=== PATIENT | female | born 1945 | race Caucasian/White ===

== ENCOUNTER 2018-03-17 05:56 | Inpatient (IN) | payer MEDICARE, MEDICAID ==
[~2018-03-17] VITALS: Ht 175.3 cm; Wt 83.7 kg
--- NOTE | ~2018-03-17 | PN ---
PATIENT:WENDY RAMIREZ MEDICAL RECORD: [id number] LOCATION:[facility] ADMISSION DATE: 03/17/18 PROGRESS NOTE DATE OF SERVICE: 03/20/2018 SUBJECTIVE: The patient's case was discussed with staff. She has no new complaint. OBJECTIVE: The patient does not think she slept very well even though the nurses chart almost 10 hours. She says that she is having a lot of discomfort, but is vague about exactly where or related to what. She is requesting hydrocodone. ASSESSMENT: No change in diagnoses. PLAN: I am not satisfied with the patient's response to Celexa. I am going to taper it down and will start another antidepressant. In addition to this, I am going to taper her Klonopin down as well, especially since she overdosed on it. It is my opinion that she is going to need a different living situation and although the neuropsychological testing is pending, I am convinced it is going to show sufficient impairment such that living alone is not going to be appropriate. TRANSINT:[id number] Voice Confirmation ID: [id number] DOCUMENT ID: [id number] HOLDEN BURRELL MD at 1037 CC: [id number] DICTATION DATE: 03/20/18 1519 CASING CREW: 03/20/18 1602 ADM IN [place] [address] [place] [address]
--- NOTE | ~2018-03-17 | PN ---
PATIENT:WENDY RAMIREZ MEDICAL RECORD: [id number] LOCATION:LY Lynch112 ADMISSION DATE: 03/17/18 PROGRESS NOTE DATE OF SERVICE: 04/03/2018 SUBJECTIVE: The patient's case was discussed with staff. She has no new complaint. OBJECTIVE: The patient denies intent to harm herself or others. She generally tolerates her medicines well. Eye contact is fair. Concentration is fair. ASSESSMENT: No change in diagnoses. PLAN: Brief supportive and educational interventions were made. Senior Living prognosis is guarded. I anticipate she can be transitioned out of the hospital soon. TRANSINT:[id number] Voice Confirmation ID: [id number] DOCUMENT ID: [id number] HOLDEN BURRELL MD at 1319 CC: [id number] DICTATION DATE: 04/03/18 1516 PUMP HOUSE OPERATOR: 04/03/18 1555 ADM IN [place] [id number] [place] [id number]
--- NOTE | ~2018-03-17 | PN ---
PATIENT:WENDY RAMIREZ MEDICAL RECORD: [id number] LOCATION:[place] [facility]kay ADMISSION DATE: 03/17/18 PROGRESS NOTE DATE OF SERVICE: 04/02/2018 SUBJECTIVE: The patient's case was discussed with staff. She has no new complaint. OBJECTIVE: The patient denies intent to harm herself or others. She generally tolerates her medicines well. She has fairly severe short-term memory impairment. I anticipate that she can be transitioned to the half-way as soon as approval is received from the state. TRANSINT:[id number] Voice Confirmation ID: [id number] DOCUMENT ID: [id number] HOLDEN BURRELL MD at 1501 CC: [id number] DICTATION DATE: 04/02/18 1628 CHILDREN'S PROGRAM COORDINATOR: 04/02/18 1850 ADM IN [facility] [address] [place] [address]
--- NOTE | ~2018-03-17 | PN ---
PATIENT:WENDY RAMIREZ MEDICAL RECORD: [id number] LOCATION:[place] Lynch112 ADMISSION DATE: 03/17/18 PROGRESS NOTE DATE OF SERVICE: 04/05/2018 SUBJECTIVE: The patient's case was discussed with staff. She has no new complaint. OBJECTIVE: The patient will be transitioned out of the hospital today. An explanation of this was given in yesterday's note. I continue to hold those views. She is not acutely dangerous, but she is demented and needs supervision that is not going to be adequately provided. I have decided to report the case to adult protective services and feel that that is all that can be done. ASSESSMENT: No change in diagnoses. PLAN: Brief supportive and educational interventions were made. The patient will be transitioned out of the hospital today. TRANSINT:[id number] Voice Confirmation ID: [id number] DOCUMENT ID: [id number] HOLDEN BURRELL MD at 1450 CC: [id number] DICTATION DATE: 04/05/18 1028 PARTS COORDINATOR: 04/05/18 1101 DIS IN 04/05/18 [facility] [address] [place] [address]
--- NOTE | ~2018-03-17 | PN ---
PATIENT:WENDY RAMIREZ MEDICAL RECORD: [id number] LOCATION:[place]kay ADMISSION DATE: 03/17/18 PROGRESS NOTE DATE OF SERVICE: 03/26/2018 SUBJECTIVE: The patient's case was discussed with staff. She has no new complaint. OBJECTIVE: The patient is in good behavioral control with limited insight about her condition. She does tolerate her medicines well. ASSESSMENT: Senile dementia of the Alzheimer's type with behavioral disturbances. PLAN: The patient needs the dementia diagnosis added to her regimen. Dr. Kylah Serna has tested her. She scored in the moderate to severe range. This is consistent with bedside exam. She is not capable of living independently. I am not sure what her daughter and sister want as far as her living circumstances go, but it is inappropriate for her to live independently. In fact, she is in need of 84-aexi-o-day supervision. TRANSINT:[id number] Voice Confirmation ID: [id number] DOCUMENT ID: [id number] HOLDEN BURRELL MD at 1452 CC: [id number] DICTATION DATE: 03/26/18 1507 DAIRY DEPARTMENT MANAGER: 03/26/18 1537 ADM IN [place] [address] [place] [id number]
--- NOTE | ~2018-03-17 | PN ---
PATIENT:WENDY RAMIREZ MEDICAL RECORD: [id number] LOCATION:[place]kay ADMISSION DATE: 03/17/18 PROGRESS NOTE DATE OF SERVICE: 03/19/2018 SUBJECTIVE: The patient's case was discussed with staff. She has no new complaint. OBJECTIVE: The patient denies intent to harm herself or others. She is tolerating her medicines well. I think she is a little bit over sedated, but not severely so. She denies that she would seek to harm herself or others. ASSESSMENT: No change in diagnoses. PLAN: The patient will have her Klonopin reduced to 0.5 mg 3 times daily. Her long-term prognosis is guarded. TRANSINT:[id number] Voice Confirmation ID: [id number] DOCUMENT ID: [id number] HOLDEN BURRELL MD at 1456 CC: [id number] DICTATION DATE: 03/19/18 1444 CATTLE BRANDER: 03/19/18 1509 ADM IN [place] [address] [place] [address]
--- NOTE | ~2018-03-17 | PN ---
PATIENT:WENDY RAMIREZ MEDICAL RECORD: [id number] LOCATION:[place]kay ADMISSION DATE: 03/17/18 PROGRESS NOTE DATE OF SERVICE: 03/28/2018 SUBJECTIVE: The patient's case was discussed with staff. She has no new complaint. OBJECTIVE: The patient is in good behavioral control with limited insight about her condition. She is eating and sleeping reasonably well. She has evidence of significant and serious cognitive impairment. ASSESSMENT: No change in diagnoses. PLAN: The patient will have her Klonopin tapered slightly. TRANSINT:[id number] Voice Confirmation ID: [id number] DOCUMENT ID: [id number] HOLDEN BURRELL MD at 1438 CC: [id number] DICTATION DATE: 03/28/18 1404 SPOT WELDER: 03/28/18 1424 ADM IN [place] [address] [place] [address]
--- NOTE | ~2018-03-17 | PN ---
PATIENT:WENDY RAMIREZ MEDICAL RECORD: [id number] LOCATION:[place] [place] ADMISSION DATE: 03/17/18 PROGRESS NOTE DATE OF SERVICE: 03/24/2018 SUBJECTIVE: The patient's case was discussed with staff. She has no new complaint. OBJECTIVE: The patient denies intent to harm herself or others. She tolerates her medicines well. She has evidence of clear cognitive impairment. The testing from Dr. Kylah Serna is pending. ASSESSMENT: No change in diagnoses. PLAN: Current medicines have been reviewed. I am going to increase the dose of the Effexor slightly. I will continue the tapering of the Ultram and Klonopin soon. TRANSINT:[id number] Voice Confirmation ID: [id number] DOCUMENT ID: [id number] HOLDEN BURRELL MD at 1445 CC: [id number] DICTATION DATE: 03/24/18 1004 PREFABRICATOR: 03/24/18 1159 ADM IN [place] [address] [place] [address]
--- NOTE | ~2018-03-17 | PN ---
PATIENT:WENDY RAMIREZ MEDICAL RECORD: [id number] LOCATION:LY [place] ADMISSION DATE: 03/17/18 PROGRESS NOTE DATE OF SERVICE: 03/30/2018 SUBJECTIVE: No new complaint noted. OBJECTIVE: The patient has been doing reasonably well. No further suicidal ideation has been noted. We are waiting on assessment from [facility] and associates. On exam, mood is for the most part euthymic. Affect is very constricted. Speech is terse. Content of thought is negative for suicidal ideation. Sensorium unchanged. ASSESSMENT: No change in diagnosis. PLAN: 1. Continue all current medication. 2. Continue supportive therapy. TRANSINT:[id number] Voice Confirmation ID: [id number] DOCUMENT ID: [id number] WENDY HILL III, MD at 1959 CC: [id number] DICTATION DATE: 03/30/18 1116 SUPERVISOR COMPONENT ASSEMBLER: 03/30/18 1120 ADM IN [place] [id number] [place] [address]
--- NOTE | ~2018-03-17 | PSY ---
PATIENT NAME:WENDY RAMIREZ MEDICAL RECORD: [id number] : 41 LOCATION:[facility] ADMISSION DATE: 03/17/18 ACCOUNT: [id number] PSYCHIATRIC EVALUATION DATE OF EVALUATION: 03/17/18 IDENTIFYING DATA: The patient is 72 years old and she is admitted to the hospital on a voluntary basis. CHIEF COMPLAINT: Suicidal thoughts. HISTORY OF PRESENT ILLNESS: Last night, the patient was depressed and took several Klonopin. She says she was thinking about taking the rest, but was taken to the Emergency Room where she indicated she was depressed, had taken some Klonopin 3 tablets, I believe and then was wanting to take the rest of them for the purpose of ending her life. She endorses numerous neurovegetative depressive symptoms and feels helpless, hopeless, isolated, and withdrawn. She denies substance abuse. She denies overt psychotic symptoms. PAST MEDICAL HISTORY: Significant for COPD, hypothyroidism, and a brain tumor that was removed in the remote past. PAST PSYCHIATRIC HISTORY: Significant for previous diagnosis of bipolar disorder after she was hospitalized some years ago for a suicide attempt. At that time, she did indeed take an overdose and had outpatient psychiatric followup for a while, but then was changed to her primary care physician and then has stopped seeing him. 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 It is interestingly now listed as an allergy, but she says that is just because she does not want to get hooked on it again. FAMILY HISTORY: Significant for first-degree relatives with bipolar disorder. ALLERGIES: ASPIRIN AND CIPRO. CURRENT MEDICATIONS: Include Synthroid, Protonix, Aldactone, Zocor, Klonopin, Zofran, Desyrel, Mirapex, Celexa, Xarelto, Ventolin, and Macrodantin. SOCIAL HISTORY: The patient is . She does have 2 adult children involved with her care. 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 She has no history of legal entanglements or alcohol abuse. She is a very heavy smoker, but says that she recently has cut down from 3 packs a day to 1. About 6 months ago, she was having trouble paying her bills, keeping her checkbook balance and her daughter has now taken over that function. MENTAL STATUS EXAMINATION: The patient is awake, alert, and oriented to person and place and somewhat to time and situation. Her mood is flat. Her affect is constricted. Thought processes are circumstantial. Memory, concentration, and abstraction abilities are moderately impaired and she denies any active intent to harm herself or others as well as overt psychotic symptoms. ASSETS: Supportive family members. LIABILITIES: Limited insight. DIAGNOSTIC IMPRESSION: AXIS I: 1. Bipolar disorder, depressed phase. 2. Senile dementia of the Alzheimer's type. AXIS II: Deferred. AXIS III: Chronic obstructive pulmonary disease, hypothyroidism, status post brain tumor. AXIS IV: Moderate stressors. AXIS V: Global assessment of functioning is 35. PLAN: At this time, the patient is admitted to the hospital for a comprehensive medical, psychological, and social evaluation. She will be treated with both mood stabilizing and memory enhancing medications. Her long-term prognosis is guarded. TRANSINT:[id number] Voice Confirmation ID: [id number] DOCUMENT ID: [id number] HOLDEN BURRELL MD at 1417 CC: [id number] DICTATION DATE: 03/17/18 1042 CONTINUOUS IMPROVEMENT FACILITATOR: 03/17/18 1141 [facility] IN [place] [address] [place] [id number]
--- NOTE | ~2018-03-17 | PN ---
PATIENT:WENDY ARMIREZ MEDICAL RECORD: [id number] LOCATION:[place] LynchKaykay ADMISSION DATE: 03/17/18 PROGRESS NOTE DATE OF SERVICE: 03/27/2018 SUBJECTIVE: The patient's case was discussed with staff. She has no new complaint. OBJECTIVE: The patient is severely impaired cognitively. She has not been aggressive. She has not complained about anxiety or pain associated with my tapering off her Ultram and Klonopin. Today, I am going to reduce the Ultram to 50 mg twice daily. ASSESSMENT: No change in diagnoses. PLAN: The patient requires a level 2 screening by the office of long-term care before she can go to a [facility]. This will delay discharging her until this is completed. It is my opinion that the patient is too impaired to live alone. TRANSINT:[id number] Voice Confirmation ID: [id number] DOCUMENT ID: [id number] HOLDEN BURRELL MD at 1339 CC: [id number] DICTATION DATE: 03/27/18 1511 ASSORTER LAUNDRY: 03/27/18 1519 ADM IN [facility] [address] [place] [id number]
--- NOTE | ~2018-03-17 | DS ---
PATIENT:WENDY RAMIREZ :41 MEDICAL RECORD: [id number] DISCHARGE SUMMARY ADMISSION DATE: 03/17/18 DISCHARGE DATE: 04/05/18 IDENTIFYING DATA: The patient is 72 years old and she was admitted to the hospital on a voluntary basis because of suicidal thoughts. The patient has been depressed and took several Klonopin tablets. She says she was very unhappy and was then taken to the Emergency Room by some family members. She had only taken 3 of the Klonopin. She endorsed numerous neurovegetative depressive symptoms and was admitted to the behavioral unit for evaluation and treatment. HOSPITAL COURSE: The patient was fully evaluated from both a medical, psychological, and social standpoint. She was found to have a history of mental illness with a history of bipolar disorder and she was given a mood stabilizer. Unfortunately, she was also found to have, through both bedside exam and neuropsychological testing, a dementia. She was treated with a cholinesterase inhibitor. The patient was cognitively impaired and mentally ill and had limited abilities to care for herself and a limited support system. She was subsequently referred for long-term placement, but denied by the state for reasons that are inadequate in my view. The director social welfare who evaluated her for the state felt that I and the psychologist who had tested her had overestimated her inability to function despite the fact that the social workers interviewed her briefly and she was hospitalized with us for weeks. That also is despite the fact that the director social welfare from the state has a subordinate credentials to both myself and Dr. Serna, but at any rate, there is nothing that can be done about it and the state will not allow her to go to a long-term, although I doubt they will take responsibility for any bad outcome. DISCHARGE DIAGNOSES: AXIS I: 1. Bipolar disorder. 2. Senile dementia of the Alzheimer's type. AXIS II: Deferred. AXIS III: Chronic obstructive pulmonary disease, hypothyroidism, status post brain tumor. AXIS IV: Moderate stressors. AXIS V: Global assessment of functioning is 40. PLAN: At the time of discharge, the patient was not acutely dangerous to herself in a direct way. She was tolerating her medicines well and appropriate followup recommendations were made. Unfortunately, the patient's limited insight and abilities to function are likely to reduce her long-term prognosis significantly. I have instructed her that if she has any thoughts of harming herself, she should call immediately or just dial 911 and that I would readmit her and try again to have the office of long-term care allow me to put her in a long-term. TRANSINT:[id number] Voice Confirmation ID: [id number] DOCUMENT ID: [id number] DISCHARGE SUMMARY REPORT [id number] WENDY RAMIREZ PETER MD at 1344 CC: [id number] DICTATION DATE: 04/12/18 1400 MARKETING OPERATIONS CONSULTANT: 04/12/18 1515 DIS IN 04/05/18 [place] [address] [place] [address]
--- NOTE | ~2018-03-17 | PN ---
PATIENT:WENDY RAMIREZ MEDICAL RECORD: [id number] LOCATION:LY LynchKaykay ADMISSION DATE: 03/17/18 PROGRESS NOTE DATE OF SERVICE: 03/21/2018 SUBJECTIVE: The patient's case was discussed with staff. She has no new complaint. OBJECTIVE: The patient is in good behavioral control with limited insight about her condition. She did sleep better last night. PLAN: Her long-term prognosis is guarded. I do plan to discontinue her Celexa and I am going to start her on a low dose of Effexor. TRANSINT:[id number] Voice Confirmation ID: [id number] DOCUMENT ID: [id number] HOLDEN BURRELL MD at 1224 CC: [id number] DICTATION DATE: 03/21/18 1049 SPORTS ACTIVITIES FOUL JUDGE: 03/21/18 1156 ADM IN [place] [address] [place] [address]
--- NOTE | ~2018-03-17 | PN ---
PATIENT:WENDY RAMIREZ MEDICAL RECORD: [id number] LOCATION:LY BucioBiancaKaykay ADMISSION DATE: 03/17/18 PROGRESS NOTE DATE OF SERVICE: 03/29/2018 SUBJECTIVE: The patient's case was discussed with staff. She has no new complaint. OBJECTIVE: The patient is in good behavioral control. She has significant cognitive impairment, but no active thoughts of self-harm. ASSESSMENT: No change in diagnoses. PLAN: Current medicines and therapies have been reviewed and will be maintained. Long-term prognosis is guarded. I am going to taper the patient's Ultram slightly and I do plan to discontinue both it and the Klonopin. TRANSINT:[id number] Voice Confirmation ID: [id number] DOCUMENT ID: [id number] HOLDEN BURRELL MD at 1617 CC: [id number] DICTATION DATE: 03/29/18 1455 INSURANCE CLAIMS SPECIALIST: 03/29/18 1612 ADM IN [place] [address] [place] [address]
--- NOTE | ~2018-03-17 | PN ---
PATIENT:WENDY RAMIREZ MEDICAL RECORD: [id number] LOCATION:LY LynchKaykay ADMISSION DATE: 03/17/18 PROGRESS NOTE DATE OF SERVICE: 03/23/2018 SUBJECTIVE: The patient's case was discussed with staff. She has no new complaint. OBJECTIVE: The patient is in good behavioral control with limited insight about her condition. She tolerates her medicines well. ASSESSMENT: No change in diagnoses. PLAN: Supportive and educational interventions were made. The patient will have her Ultram and Klonopin titrated downward slightly. Her long-term prognosis is guarded. TRANSINT:[id number] Voice Confirmation ID: [id number] DOCUMENT ID: [id number] HOLDEN BURRELL MD at 0949 CC: [id number] DICTATION DATE: 03/23/18 1234 SWEEP MOLDER: 03/23/18 1239 ADM IN [place] [id number] [place] [address]
--- NOTE | ~2018-03-17 | PN ---
PATIENT:WENDY RAMIREZ MEDICAL RECORD: [id number] LOCATION:LY Lynch112 ADMISSION DATE: 03/17/18 PROGRESS NOTE DATE OF SERVICE: 04/04/2018 SUBJECTIVE: The patient's case was discussed with staff. She has no new complaint. OBJECTIVE: The patient has no thoughts of self-harm and is tolerating her medications well. Unfortunately, [facility] has decided that she does not meet criteria for long-term. They base this on a kzvn-ki-knpo evaluation done by a director of social media marketing. This is contrary to my recommendation as a physician and psychiatrist as well as the recommendation of the consulting Ph. D. psychologist who performed neuropsychiatric testing, indicating that Mrs. Ramirez has a moderately advanced dementia. It is my recommendation that she needs a long-term. The [facility] had been contacted to request a repeal and appeal, which they said they would kristina but, in a condescending manner, indicated that appeals are done by the same people who made this ruling and that it would be just a waste of time. Obviously, this leaves me with no alternative but to discharge her back home, which I think is not the appropriate setting for her. I am holding the director of social media marketing from [facility] responsible and the agency that she works for responsible if there is a bad outcome based on not following the recommendations of the attending psychiatrist, myself; and the consulting psychologist, Dr. Serna. I find this to be completely unacceptable, almost certainly motivated by contractual arrangement from a private organization with the state in which they are paid to save money on Medicaid payments to long-term admissions and I understand the budgetary restraints, but this is wildly inappropriate; and if I had the ability to overrule it or change it, I certainly would. I am also going to monitor the situation, and if I find out that she is injured, we will make sure that there is action taken against [facility]. ASSESSMENT: No change in diagnoses. PLAN: The patient will be transitioned out of the hospital tomorrow under circumstances that are disgraceful and described above. TRANSINT:[id number] Voice Confirmation ID: [id number] DOCUMENT ID: [id number] HOLDEN BURRELL MD at 1012 CC: [id number] DICTATION DATE: 04/04/18 1341 INSTRUCTIONAL SPECIALIST: 04/04/18 1358 ADM IN [facility] [address] [facility]
--- NOTE | ~2018-03-17 | PN ---
PATIENT:WENDY RAMIREZ MEDICAL RECORD: [id number] LOCATION:LY Lynch112 ADMISSION DATE: 03/17/18 PROGRESS NOTE DATE OF SERVICE: 03/22/2018 SUBJECTIVE: The patient's case was discussed with staff. She has no new complaint. OBJECTIVE: The patient denies intent to harm herself or others. She generally tolerates her medicines well. Eye contact is poor. Concentration is poor. ASSESSMENT: No change in diagnoses. PLAN: The patient will have her Ultram changed to a lower dose, but scheduled instead of p.r.n. In addition to this, I am going to maintain her on her current medications. Some interesting additional information has been provided by her daughter. Apparently, the patient has a lifelong history of taking narcotics or pain medicines and benzos for real or perceived or exaggerated emotional and physical discomfort. The family says that if she would become angry with the doctor who would not prescribe what she wanted or would limit what she wanted she would just simply go see another physician. I have not discussed this with the patient, but it does seem consistent with the presentation that I am receiving. Based on this, I am going to change her from p.r.n. Ultram, which she is asking for regularly to a lower dose of scheduled Ultram, which I will taper her down from if possible. I am anxious to have Dr. Kylah Serna test her. I am certain that she is not intact cognitively and my estimate is that she is in the moderate range of impairment and should not be living alone. TRANSINT:[id number] Voice Confirmation ID: [id number] DOCUMENT ID: [id number] HOLDEN BURRELL MD at 1212 CC: [id number] DICTATION DATE: 03/22/18 1300 VACUUM PLASTIC FORMING MACHINE OPERATOR: 03/22/18 1306 ADM IN [facility] [address] [place] [address]
[~2018-03-17 05:56] MED LIST: ALDACTONE50 MG PO; ATARAX 25 MG TA25 MG PO; ATIVAN0.5 MG PO; CARAFATE1 G PO; COMBIVENT RESPIM4 GM INH; CYMBALTA30 MG PO; FISH OIL 500 MG1 CAP PO; FUROSEMIDE20 MG PO; IPRAT-ALBUT 0.5-3 ML UPD; LEVAQUIN500 MG PO; LEVOTHYROXINE50 MCG PO; LEXAPRO10 MG PO; MACRODANTIN100 MG PO; MECLIZINE HCL25 MG PO; MULTIPLE VITAMI1 TA1 PO; NEXIUM40 MG PO; NICODERM C1 PATCH .2 TRANSDERM; NYSTATIN1 PWD TOPICAL; PERCOCET 5-3251 TAB PO; PHENERGAN25 M1 PO; PROTONIX40 MG PO; REGLAN10 MG PO; SILVADENE20 GM TOPICAL; TIROSINT13 MCG; TYLENOL W/CODEI1 TAB PO; VENTOLIN/PR2 MG/5 ML; VESICARE10 MG PO; XARELTO10 MG; XARELTO20 MG PO; ZOCOR40 MG PO; ZOCOR5 MG
[2018-03-17] MEDS ORDERED: MACROBID100 MG PO (06:20)
[2018-03-17] MEDS ORDERED: ACIDOPHILUS-PE1 EACH PO (06:22)
[2018-03-17] MEDS ORDERED: ZOFRAN4 MG PO (06:22)
[2018-03-17] MEDS ORDERED: FIORICET-COD 51 EACH PO (06:24)
[2018-03-17] MEDS ORDERED: MIRAPEX1 MG PO (06:25)
[2018-03-17] MEDS ORDERED: DESERYL100 MG PO (06:27)
[2018-03-17] MEDS ORDERED: MYSOLINE 50 MG50 MG PO (06:28)
[2018-03-17] MEDS ORDERED: TEMAZEPAM30 MG PO (06:29)
[2018-03-17] MEDS ORDERED: KLONOPIN1 MG PO (06:30)
[2018-03-17] MEDS ORDERED: PROVENTIL/2.5 MG/3 M INH (06:31)
[2018-03-17] MEDS ORDERED: CELEXA20 MG PO (06:32)
[2018-03-17 08:20] LABS: BASOPHILS 0.2 % (0-2); EOSINOPHILS 3.1 % (0-7); HEMATOCRIT 39.5 % (36.0-48.0); HEMOGLOBIN 13.7 g/dL (12-16); IMMATURE GRANULOCYTES 0.2 % (0-5); LYMPHOCYTES 31.4 % (15-50); MCH 31.4 pg (26.0-34.0); MCHC 34.7 g/dL (31.0-37.0); MCV 90.6 fL (80.0-100.0); MEAN PLATELET VOLUME 11.2 fL (7.4-10.4); MONOCYTES 7.3 % (2-11); NEUTROPHILS 57.8 % (40-80); RBC 4.36 10x6/uL (4.00-5.40); RDW 12.7 % (11.5-14.5); WBC 6.4 10x3/uL (4.8-10.8)
[2018-03-17 08:31] LABS: PLATELET COUNT 144 10x3/uL (130-400)
[2018-03-17 08:39] LABS: ALBUMIN 3.6 g/dL (3.4-5.0); ANION GAP 12.4 mmol/L (8-16); BILIRUBIN - TOTAL 0.13 mg/dL (0.2-1.3); CALCIUM 8.9 mg/dL (8.5-10.1); CARBON DIOXIDE 29.9 mmol/L (21.0-32.0); CHOL - HDL RATIO 4.1 ratio (2.3-4.1); CREATININE - SERUM 0.8 mg/dL (0.6-1.3); LDL-HDL RATIO 1.8 ratio (1.5-3.5); POTASSIUM - SERUM 4.3 mmol/L (3.5-5.1); PROTEIN - SERUM 7.2 g/dL (6.4-8.2); THYROID STIMULATING HORMONE 2.25 uIU/mL (0.36-3.74)
[2018-03-17 10:06] VITALS: BP 116/72; BMI 27.3
[2018-03-17 10:42] VITALS: BP 116/72
[2018-03-17 20:16] VITALS: BP 140/64
[2018-03-17 21:32] LABS: APPEARANCE CLOUDY (CLEAR); COLOR YELLOW (YELLOW); SPECIFIC GRAVITY 1.005 (1.005-1.020)
[2018-03-17 21:33] LABS: BILIRUBIN NEGATIVE (NEGATIVE); GLUCOSE NEGATIVE (NEGATIVE); KETONE NEGATIVE (NEGATIVE); NITRITE NEGATIVE (NEGATIVE); PROTEIN NEGATIVE (NEGATIVE); UROBILINOGEN NORMAL (NORMAL)
[2018-03-17 21:35] LABS: BACTERIA MODERATE /hpf (NONE SEEN); EPITHELIAL CELLS 0-5 /hpf (0-5); RED CELLS - URINE 0-5 /hpf (0-5)
[2018-03-18 08:27] VITALS: BP 105/69
[2018-03-18 19:26] VITALS: BP 124/71
[2018-03-19 07:00] VITALS: BP 101/65
[2018-03-19 07:09] LABS: VITAMIN D 25 HYDROXY 29.7 ng/mL (30.0-100.0)
[2018-03-19 09:58] VITALS: BMI 27.3
[2018-03-19 12:11] LABS: FOLATE (FOLIC ACID) - SERUM >20.0 ng/mL (>3.0)
[2018-03-19 19:56] VITALS: BP 120/82
[2018-03-20 03:10] LABS: RAPID PLASMA REAGIN Non Reactive (Non Reactive)
[2018-03-20 07:56] VITALS: BP 117/80
[2018-03-20 19:55] VITALS: BP 124/72
[2018-03-21 19:33] VITALS: BP 118/66
[2018-03-22 08:11] VITALS: Ht 175.3 cm; Wt 83.7 kg
[2018-03-22 08:30] VITALS: BP 96/90
[2018-03-22 21:13] VITALS: BP 110/61
[2018-03-23 08:30] VITALS: BP 101/68
[2018-03-23 20:02] VITALS: BP 114/67
[2018-03-24 08:16] VITALS: BP 100/67
[2018-03-24 10:19] VITALS: BP 105/67
[2018-03-24 19:58] VITALS: BP 117/72
[2018-03-25 07:00] VITALS: BP 114/78
[2018-03-25 20:26] VITALS: BP 102/54
[2018-03-26 07:00] VITALS: BP 112/75
[2018-03-26 19:58] VITALS: BP 107/73
[2018-03-27 10:03] VITALS: BP 113/76
[2018-03-28 00:11] VITALS: BP 118/76
[2018-03-28 08:00] VITALS: BP 113/83
[2018-03-28 20:00] VITALS: BP 118/65
[2018-03-29 09:39] VITALS: BP 94/65
[2018-03-30 21:09] VITALS: BP 117/68
[2018-03-31 11:14] VITALS: BP 109/72
[2018-03-31 19:32] VITALS: BP 117/74
[2018-04-01 07:00] VITALS: BP 115/69
[2018-04-01 19:20] VITALS: BP 143/91
[2018-04-02 07:00] VITALS: BP 124/76
[2018-04-02 20:58] VITALS: BP 104/69
[2018-04-03 10:25] VITALS: BP 120/70
[2018-04-03 19:36] VITALS: BP 110/65
[2018-04-04 10:56] VITALS: BP 122/78
[2018-04-04] MEDS ORDERED: ARICEPT5 MG PO (13:46)
[2018-04-04] MEDS ORDERED: EFFEXOR50 MG PO (13:47)
[2018-04-04] MEDS ORDERED: COLACE100 MG PO (13:48)
[2018-04-04] MEDS ORDERED: FLORAJEN3 CAPS460 MG PO (13:48)
[2018-04-04 20:25] VITALS: BP 157/94
[2018-04-05 09:45] VITALS: BP 128/74
[2018-06-01] MEDS ORDERED: XARELTO20 MG PO (13:10)
[2018-06-01] MEDS ORDERED: TRAZODONE HCL100 MG PO (13:11)
== END 2018-04-05 13:35 | disposition home or self-care (01) | DRG 885 ==
LOC: D.PSYCH 05:56
PROVIDERS: Psychiatry & Neurology Psychiatry
DX: F31.30 Bipolar disorder, current episode depressed, mild or moderate severity, unspecified (principal); R45.851 Suicidal ideations; F02.81 Dementia in other diseases classified elsewhere, unspecified severity, with behavioral disturbance; N39.0 Urinary tract infection, site not specified; G30.1 Alzheimer's disease with late onset; J44.9 Chronic obstructive pulmonary disease, unspecified; E03.9 Hypothyroidism, unspecified; D64.9 Anemia, unspecified; K21.9 Gastro-esophageal reflux disease without esophagitis; E78.5 Hyperlipidemia, unspecified; F41.9 Anxiety disorder, unspecified; R51 Headache; K59.09 Other constipation

== ENCOUNTER → 2018-06-20 13:54 | Outpatient (CLI) | payer MEDICARE, MEDICAID ==
[2018-06-02 10:57] VITALS: BMI 26.7
[~2018-06-20 13:54] MED LIST changes: +ACIDOPHILUS-PE1 EACH PO; +ARICEPT5 MG PO; +CELEXA20 MG PO; +COLACE100 MG PO; +DESERYL100 MG PO; +EFFEXOR50 MG PO; +FIORICET-COD 51 EACH PO; +FLORAJEN3 CAPS460 MG PO; +KLONOPIN1 MG PO; +MACROBID100 MG PO; +MIRAPEX1 MG PO; +MYSOLINE 50 MG50 MG PO; +PROVENTIL/2.5 MG/3 M INH; +TEMAZEPAM30 MG PO; +TRAZODONE HCL100 MG PO; +ZOFRAN4 MG PO
[2018-06-20 14:59] LABS: APPEARANCE HAZY (CLEAR); BILIRUBIN NEGATIVE (NEGATIVE); COLOR YELLOW (YELLOW); GLUCOSE NEGATIVE (NEGATIVE); KETONE NEGATIVE (NEGATIVE); NITRITE NEGATIVE (NEGATIVE); PROTEIN NEGATIVE (NEGATIVE); UROBILINOGEN NORMAL (NORMAL)
[2018-06-20 15:01] LABS: BACTERIA MODERATE /hpf (NONE SEEN); EPITHELIAL CELLS 0-5 /hpf (0-5); MUCUS <1+ /lpf (NONE SEEN); RED CELLS - URINE 0-5 /hpf (0-5); WHITE CELLS - URINE 0-5 /hpf (0-5)
[2018-06-20 15:30] LABS: ALBUMIN 3.7 g/dL (3.4-5.0); ANION GAP 13.7 mmol/L (8-16); BILIRUBIN - TOTAL 0.42 mg/dL (0.2-1.3); CALCIUM 9.8 mg/dL (8.5-10.1); CARBON DIOXIDE 26.8 mmol/L (21.0-32.0); POTASSIUM - SERUM 4.5 mmol/L (3.5-5.1); PROTEIN - SERUM 7.5 g/dL (6.4-8.2); THYROID STIMULATING HORMONE 0.87 uIU/mL (0.36-3.74)
== END | disposition home or self-care (01) ==
LOC: D.RAD 13:54
PROVIDERS: Family Medicine
DX: R10.9 Unspecified abdominal pain (principal); R11.0 Nausea; E03.9 Hypothyroidism, unspecified; F32.9 Major depressive disorder, single episode, unspecified; K56.7 Ileus, unspecified; F03.90 Unspecified dementia, unspecified severity, without behavioral disturbance, psychotic disturbance, mood disturbance, and anxiety; R63.4 Abnormal weight loss

== ENCOUNTER → 2018-08-03 13:04 | Outpatient (CLI) | payer MEDICARE, MEDICAID ==
[2018-06-02 10:57] VITALS: BMI 26.7
[2018-08-03 14:17] LABS: BASOPHILS 0.2 % (0-2); EOSINOPHILS 3.4 % (0-7); HEMATOCRIT 38.4 % (36.0-48.0); HEMOGLOBIN 12.7 g/dL (12-16); IMMATURE GRANULOCYTES 0.2 % (0-5); LYMPHOCYTES 34.5 % (15-50); MCH 30.3 pg (26.0-34.0); MCHC 33.1 g/dL (31.0-37.0); MCV 91.6 fL (80.0-100.0); MEAN PLATELET VOLUME 10.6 fL (7.4-10.4); MONOCYTES 6.7 % (2-11); RBC 4.19 10x6/uL (4.00-5.40); RDW 13.9 % (11.5-14.5); WBC 6.2 10x3/uL (4.8-10.8)
[2018-08-03 14:20] LABS: PLATELET COUNT 165 10x3/uL (130-400)
[2018-08-03 14:39] LABS: ALBUMIN 3.5 g/dL (3.4-5.0); ANION GAP 13.7 mmol/L (8-16); BILIRUBIN - TOTAL 0.22 mg/dL (0.2-1.3); CALCIUM 9.3 mg/dL (8.5-10.1); CARBON DIOXIDE 25.6 mmol/L (21.0-32.0); CREATININE - SERUM 0.9 mg/dL (0.6-1.3); POTASSIUM - SERUM 4.3 mmol/L (3.5-5.1); PROTEIN - SERUM 7.5 g/dL (6.4-8.2)
== END | disposition home or self-care (01) ==
LOC: D.LAB 13:04
PROVIDERS: Family Medicine
DX: R11.0 Nausea (principal); R10.9 Unspecified abdominal pain; R19.7 Diarrhea, unspecified; R63.4 Abnormal weight loss

== ENCOUNTER → 2018-08-06 12:54 | Outpatient (CLI) | payer MEDICARE, MEDICAID ==
[2018-06-02 10:57] VITALS: BMI 26.7
== END | disposition home or self-care (01) ==
LOC: D.NM 12:54 → D.RT 15:00
DX: C34.90 Malignant neoplasm of unspecified part of unspecified bronchus or lung (principal)

== ENCOUNTER 2018-08-27 05:00 | Inpatient (IN) | payer MEDICARE, MEDICAID ==
[2018-08-24 10:16] LABS: HEMATOCRIT 40.5 % (36.0-48.0); HEMOGLOBIN 13.7 g/dL (12-16); MCH 30.6 pg (26.0-34.0); MCHC 33.8 g/dL (31.0-37.0); MCV 90.6 fL (80.0-100.0); MEAN PLATELET VOLUME 11.1 fL (7.4-10.4); RBC 4.47 10x6/uL (4.00-5.40); RDW 13.7 % (11.5-14.5); WBC 6.8 10x3/uL (4.8-10.8)
[2018-08-24 10:26] LABS: APPEARANCE CLEAR (CLEAR); BILIRUBIN NEGATIVE (NEGATIVE); COLOR STRAW (YELLOW); GLUCOSE NEGATIVE (NEGATIVE); KETONE NEGATIVE (NEGATIVE); NITRITE NEGATIVE (NEGATIVE); PROTEIN NEGATIVE (NEGATIVE); UROBILINOGEN NORMAL (NORMAL)
[2018-08-24 10:34] LABS: APTT 29.5 SECONDS (22.8-39.4); INR 0.95 (0.85-1.17); PROTIME 12.2 SECONDS (11.6-15.0)
[2018-08-24 10:36] LABS: ALBUMIN 3.5 g/dL (3.4-5.0); ANION GAP 10.6 mmol/L (8-16); BILIRUBIN - TOTAL 0.19 mg/dL (0.2-1.3); CARBON DIOXIDE 29.4 mmol/L (21.0-32.0); CREATININE - SERUM 0.8 mg/dL (0.6-1.3)
[2018-08-27] VITALS (54 sets, daily range): BP systolic 90–131; BP diastolic 44–80; BMI 26.9
[~2018-08-27] VITALS: Ht 175.3 cm; Wt 85.5 kg
--- NOTE | ~2018-08-27 | MORECARE ---
CASE MANAGEMENT DISCHARGE SUMMARY PATIENT: WENDY RAMIREZ UNIT: [id number] ADM DATE: 08/27/18 AGE: 73 : 43 SEX: F ROOM/BED: [facility] AUTHOR: MELINA,DOC PHYSICIAN: REFERRING PHYSICIAN: CELESTE BOO MD DATE OF SERVICE: 09/03/18 Discharge Plan Patient Name: WENDY RAMIREZ Facility: [facility]:[place] : 1945 Planned Disposition: Home Anticipated Discharge Date: Discharge Date: 09/01/2018 Expected LOS: Initial Reviewer: [id number] Initial Review Date: 08/28/2018 Generated: 09/03/18 10:57 am Comments DCP- Discharge Planning Updated by [email or web address]: Allegra Escobar on 08/31/18 3:[address] Patient Name: WENDY RAMIREZ Encounter No: [id number] : 1945 Primary Insurance: [employer] MEDICARE SOLUTIONS Anticipated DC Date: Planned Disposition: Home External Planned Provider: : DCP follow-up note: IMM explained and served 08/31/18 @ 1607 Patient and family in agreement with discharge plan. No changes to plan. Case management will follow and assist as needed. Allegra Escobar DCP- Discharge Planning Updated by [email or web address]: Allegra Escobar on 08/29/18 3:[address] Patient Name: WENDY RAMIREZ Admission Status: Elective Accout number: [id number] Admission Date: 08-27-2018 : 1945 Admission Diagnosis:MALIGNANT NEOPLASM OF LOWER LOBE, LEFT BRONCHUS OR LUNG Attending: CELESTE BOO Current LOS: 2 Anticipated DC Date: Planned Disposition: Home Primary Insurance: [employer] MEDICARE SOLUTIONS Discharge Planning Comments: CM met with patient at bedside. Patient plans to return to her home with her daughter and family. Patient denies any discharge needs at this time. CM will continue to follow and assist with discharge planning / needs. Raveler: Allegra Escobar DCPIA - Discharge Planning Initial Assessment Updated by [email or web address]: Allegra Escobar on 08/29/18 4:03 pm * Is the patient Alert and Oriented? Yes * How many steps to enter\exit or inside your home? * PCP Frida * Pharmacy [facility] * Preadmission Environment Home with Family * ADLs Independent * Equipment Oxygen * Other Equipment home 02, walker with seat, shower chair, * Additional services required to return to the preadmission environment? No * Can the patient safely return to the preadmission environment? Yes * Has this patient been hospitalized within the prior 30 days at any hospital? No Coverage Notice Reviewer: [id number] Sherri Escobar Notice Issued Date-Time: 08/31/2018 16:07 Notice Type: IM Discharge Notice Notice Delivered To: Patient Relationship to Patient: Self Aircraft Accessories Mechanic Name: Delivery Method: HAND - Hand Delivered Tiffanie Days: Prior Verbal Notification: Recipient Understood Notice: Yes Recipient Signature: Yes Med Rec Note Co-signed by Attending: Coverage Notice Comment: Last DP export: 08/31/18 3:38 Patient Name: WENDY RAMIREZ Page 50459 at 0957 All edits/amendments must be made on the electronic document DICTATION DATE: 09/03/18955 BEAN SPROUT GROWER: MICH 09/03/18955 RPT#: [id number] DC DATE:09/01/18 STATUS: DIS IN [facility] [address] [place] [address] END OF REPORT
--- NOTE | ~2018-08-27 | OP ---
PATIENT NAME: WENDY RAMIREZ MEDICAL RECORD: [id number] :41 LOCATION:[facility] ADMISSION DATE:08/27/18 SURGEON: CADEN HALL MD DATE OF OPERATION: 08/27/2018 SURGEON: Caden Hall MD ANESTHESIA: General endotracheal, Dr. Man. OPERATION PERFORMED: 1. Left thoracotomy and left lower lobe resection. 2. Mediastinal dissection. 3. Flexible fiberoptic bronchoscopy. 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 FINDINGS OF THE OPERATION: The tumor was localized to the left lower lobe. There were no lymph nodes to be harvested at level 4, 5,6, or 8, 9, level 10 nodes were sent with the specimen. ESTIMATED BLOOD LOSS: Less than 150 mL. DESCRIPTION OF PROCEDURE: After informed consent, adequate preoperative medication evaluation, the patient was brought to the operating room, placed in supine position. After induction of general endotracheal anesthesia and application of appropriate monitoring devices, the patient underwent flexible fiberoptic bronchoscopy and placement of a double lumen tube. The patient was then turned in a right lateral decubitus position, left chest prepped and draped in sterile field, utilizing Betadine scrub, alcohol, and Betadine solution. A Betadine-impregnated drape was also used. A small posterolateral thoracotomy incision was made and dissection carried down the fascia. Hemostasis maintained with electrocautery. The fifth interspace was identified and opened. The chest was partially opened and the hilum dissected circumferentially and the inferior pulmonary ligament was mobilized. Exchange was made for a large retractor and the hilar dissection was continued. The pulmonary artery was identified and dissected into the lower lobe and upper lobe bifurcations. Attention was then turned towards the inferior pulmonary vein, was dissected free of surrounding structures and surrounded with a vessel loop. The inferior dissection was carried out along the length and there were no level 8 or 9 nodes found. Attention was then turned towards the hilum. The posterior fissure was developed with an Endo-SOFY stapler and the pulmonary artery dissected further into the lung. The arteries to the lower lobe were identified and protecting the lingular branches. The pulmonary artery was then divided utilizing an Endo-SOFY stapler. Next, the inferior pulmonary vein was dissected with an Endo-SOFY stapler. Attention was then turned towards the bronchus. The bronchus was dissected back to the bifurcation. A TA 60 stapler was then placed across the lower lobe OPERATIVE REPORT [id number] RAMIREZMICHAELH bronchus. The lung was tested and was satisfactory. The stapler was fired and the lower lobe, amputated and sent to pathology. Attention was then turned towards the level 4 nodes. There were no level 4 nodes to harvest nor nodes at level 5 or 6. All the level 10 nodes were dissected and went in with the specimen. Chest was irrigated with copious amounts of antibiotic solution and normal saline. There was no active bleeding. Two #28 chest tubes were placed, one anteriorly and superiorly, one posteriorly and inferiorly. Chest was again irrigated. Instrument count and sponge count were correct times 2. There were no air leaks. The chest was closed in layers utilizing #2 Vicryl pericostal sutures, #1 Vicryl on the latissimus, 2-0 Vicryl on the subcutaneous tissue and skin approximated with 3-0 subcuticular Vicryl. Sterile dressings were applied. The patient turned in the supine position. The patient then underwent exchange of the double lumen tube and single lumen tube. She underwent flexible fiberoptic bronchoscopy that showed good lower lobe stump and no debris in the left upper lobe or right lung. The patient was then awakened, extubated, and transferred to the CV ICU in satisfactory condition. TRANSINT:[id number] Voice Confirmation ID: [id number] DOCUMENT ID: [id number] CADEN HALL MD CC: [id number] DICTATION DATE: 08/27/18 115 SUPERVISOR INDUST[employer]AL [employer]S EDUCATION: 08/27/18 1251 ADM IN [place] [id number] [place] [id number]
--- NOTE | ~2018-08-27 | MORECARE ---
CASE MANAGEMENT DISCHARGE SUMMARY PATIENT: WENDY RAMIREZ UNIT: [id number] ADM DATE: 08/27/18 AGE: 73 : 43 SEX: F [facility] AUTHOR: MELINA,DOC PHYSICIAN: REFERRING PHYSICIAN: CELESTE BOO MD DATE OF SERVICE: 08/31/18 Discharge Plan Patient Name: WENDY RAMIREZ Facility: [facility]:[place] : 1945 Planned Disposition: Home Anticipated Discharge Date: Discharge Date: Expected LOS: Initial Reviewer: [id number] Initial Review Date: 08/28/2018 Generated: 08/31/18 5:38 pm Comments DCP- Discharge Planning Updated by [email or web address]: Allegra Escobar on 08/31/18 3:[address] Patient Name: WENDY RAMIREZ Encounter No: [id number] : 1945 Primary Insurance: [facility] MEDICARE SOLUTIONS Anticipated DC Date: Planned Disposition: Home External Planned Provider: : DCP follow-up note: IMM explained and served 08/31/18 @ 1607 Patient and family in agreement with discharge plan. No changes to plan. Case management will follow and assist as needed. Allegra Escobar DCP- Discharge Planning Updated by [email or web address]: Allegra Escobar on 08/29/18 3:[address] Patient Name: WENDY RAMIREZ Admission Status: Elective Accout number: [id number] Admission Date: 08-27-2018 : 1945 Admission Diagnosis:MALIGNANT NEOPLASM OF LOWER LOBE, LEFT BRONCHUS OR LUNG Attending: CELESTE BOO Current LOS: 2 Anticipated DC Date: Planned Disposition: Home Primary Insurance: [employer] MEDICARE SOLUTIONS Discharge Planning Comments: CM met with patient at bedside. Patient plans to return to her home with her daughter and family. Patient denies any discharge needs at this time. CM will continue to follow and assist with discharge planning / needs. Account Executive Software Sales: Allegra Escobar DCPIA - Discharge Planning Initial Assessment Updated by [email or web address]: Allegra Escobar on 08/29/18 4:03 pm * Is the patient Alert and Oriented? Yes * How many steps to enter\exit or inside your home? * PCP Frida * Pharmacy [facility] * Preadmission Environment Home with Family * ADLs Independent * Equipment Oxygen * Other Equipment home 02, walker with seat, shower chair, * Additional services required to return to the preadmission environment? No * Can the patient safely return to the preadmission environment? Yes * Has this patient been hospitalized within the prior 30 days at any hospital? No Coverage Notice Reviewer: [id number] Sherri Escobar Notice Issued Date-Time: 08/31/2018 16:07 Notice Type: IM Discharge Notice Notice Delivered To: Patient Relationship to Patient: Self Truss Maker Name: Delivery Method: HAND - Hand Delivered Tiffanie Days: Prior Verbal Notification: Recipient Understood Notice: Yes Recipient Signature: Yes Med Rec Note Co-signed by Attending: Coverage Notice Comment: Last DP export: 08/29/18 3:06 Patient Name: WENDY RAMIREZ Page 72299 at 1638 All edits/amendments must be made on the electronic document DICTATION DATE: 08/31/18 163 TRAILER STEERER: MICH 08/31/18 163 RPT#: [id number] DC DATE: STATUS: ADM IN [facility] [address] [place] [address] END OF REPORT
--- NOTE | ~2018-08-27 | HP ---
PATIENT: WENDY RAMIREZ MEDICAL RECORD: [id number] ACCOUNT: [id number] LOCATION:[facility] DBiancaCV05 : [birth year] ADMISSION DATE: 08/27/18 PCP: CELESTE BOO MD HISTORY AND PHYSICAL EXAMINATION NameWENDY RAMIREZ (72yo, F) ID# [id number]. Date/Time08/16/2018 01:23YMKHD1943Service Dept.NPP_[facility] ClinicProviderEDANGELIC BOO MDInsuranceMed Primary: [facility] (MEDICARE REPLACEMENT/ADVANTAGE - PPO) Insurance # : [id number] Policy/Group # : [id number] PCP : TOPHER MOJICA Referring Provider Name : TOPHER MOJICA Employer Name : RETIRED Med Secondary[place] Insurance # : [id number] Employer Name : RETIRED Prescription: [facility] MEDICAID ADMINISTRATION - Member is eligible. Prescription: ORX - Member is eligible. Chief Complaint Lung cancer RTC pFT, lung quantitative scan Patient's Care Team Primary Care Provider (): TOPHER MOJICA: [address] [facility] , [address], [place] [address], , Referring Provider (): TOPHER MOJICA: [address] [facility] , [address], [place] [address], , Other: NIGEL AGUILAR MD: [address] [place] [address], , Patient's Pharmacies [facility] ([place]): [address] [place] [address], , [facility] ([place]): [address] [place] [address] [place] [address], , [facility] ([place]): [address] [facility] [address], , Vitals BP:100/60 sitting L arm 08/16/2018 01:26 pmBP Cuff Size:adult 08/16/2018 01:26 pmHR:92,reg 08/16/2018 01:26 pmHt:5 ft 7 in 08/16/2018 01:21 pmWt:177 lbs 08/16/2018 01:26 pmBMI:27.7 08/16/2018 01:26 pmAllergies Reviewed Allergies AMBIENASPIRINVALIUMMedications Reviewed Medications Advair Diskus 250 mcg-50 mcg/dose powder for wghfweqvww17/13/18 filledPRESCRIPTION SOLUTIONSamoxicillin 500 mg-potassium clavulanate 125 mg nbbxar78/03/18 filledPRESCRIPTION SOLUTIONSbuPROPion HCl 150 mg tablet,12 hr sustained-release(smoking deterrent)07/04/18 filledPRESCRIPTION LNKXKPVQAqlpajzbxyp-woboskdjzoxtd-luiixjkx 50 mg-325 mg-40 mg uoqqxl25/21/18 filledPRESCRIPTION SOLUTIONScarvedilol 3.125 mg tablet Take one tablet twice daily08/18/17 filledPRESCRIPTION SOLUTIONSclonazePAM 1 mg tablet Take 2 tablet(s) every day by oral route at bedtime.02/06/18 filledPRESCRIPTION SOLUTIONSdicyclomine 10 mg capsule Take 1 CAPSULE with meals & HS10/10/17 prescribedThomas Enrrique Duffonepezil 5 mg /30/18 filledPRESCRIPTION SOLUTIONSFioricet 50 mg-300 mg-40 mg capsule HISTORY AND PHYSICAL [id number] WENDY RAMIREZ Take 1 capsule(s) every 4 hours by oral route as needed for headache. Internal Note: CHANGED TO TABLET DUE TO COST PER PUCKEUGB11/21/18 prescribedThomas Dennise Mojica MDFluzone Quad (PF) 60 mcg(15 mcgx4)/0.5 mL intramuscular ovxthxd18/04/17 filledPRESCRIPTION SOLUTIONSlevothyroxine 50 mcg tablet TAKE ONE TABLET BY MOUTH ONCE DAILY04/06/18 filledPRESCRIPTION SOLUTIONSLinzess 145 mcg iqdgbzq19/17/18 filledPRESCRIPTION SOLUTIONSmeclizine 25 mg /13/16 filledPRESCRIPTION SOLUTIONSmetroNIDAZOLE 500 mg miksxj94/07/17 filledPRESCRIPTION SOLUTIONSnitrofurantoin monohydrate/macrocrystals 100 mg czqidny26/27/18 filledPRESCRIPTION SOLUTIONSondansetron HCl 4 mg mxcgyb13/20/18 filledPRESCRIPTION SOLUTIONSoxygen 2lpm at night04/30/18 celeKim Morganpantoprazole 40 mg tablet,delayed release Take one tablet daily08/04/18 filledPRESCRIPTION SOLUTIONSpolyethylene glycol 3350 17 gram/dose oral bjzolz53/17/18 filledPRESCRIPTION SOLUTIONSpramipexole 1 mg tablet Take 1 tablet(s) every day by oral route at bedtime for 90 days.08/18/17 filledPRESCRIPTION SOLUTIONSsimvastatin 40 mg tablet TAKE ONE TABLET BY MOUTH ONCE DAILY08/01/18 filledPRESCRIPTION SOLUTIONSspironolactone 25 mg mlkcmi38/17/18 filledPRESCRIPTION SOLUTIONSspironolactone 50 mg tablet TK 1 T PO QD.06/22/17 filledPRESCRIPTION SOLUTIONSSUMAtriptan 100 mg tablet take one tablet at onset of headache - may take additional tablet 24hr Later if uhcxhb30/04/18 filledPRESCRIPTION SOLUTIONStraMADol 50 mg tablet TAKE ONE TABLET BY MOUTH EVERY 4 TO 6 HOURS NEEDED FOR PAIN07/31/18 filledPRESCRIPTION SOLUTIONStraZODone 100 mg falnfd04/30/18 filledPRESCRIPTION SOLUTIONStraZODone 50 mg lmorlr20/05/17 filledPRESCRIPTION SOLUTIONSvenlafaxine 50 mg vlbuzs65/17/18 filledPRESCRIPTION SOLUTIONSViberzi 100 mg tablet Take 1 tablet(s) twice a day by oral route.09/19/17 prescribedThomas A Pullig, MDXarelto 20 mg tablet Take 1 tablet(s) every day by oral route for 30 days.07/17/18 filledPRESCRIPTION SOLUTIONS Some medications listed in Documents: #[id number], #[id number] could not be added to this patient's chart. Please review these documents and add these medications to the patient's chart manually as needed. Vaccines Reviewed Vaccines Vaccine TypeDateAmt.RouteSiteLot #Mfr.Exp. DateDate on VISVIS GivenVaccinatorInfluenzainfluenza, seasonal, sapegpuyna36/04/17harps on centralinfluenza nasal15Pneumococcalpneumococcal conjugate PCV 1309Some vaccines listed in Documents: #[id number], #[id number] could not be added to this patient's chart. Please review these documents and add these vaccines to the patient's chart manually as needed. Problems Reviewed Problems Adenocarcinoma - LLL mass Polyp of colon Intracranial tumor Hypothyroidism Pure hypercholesterolemia Hypertriglyceridemia Hyponatremia Thrombocytopenic disorder HISTORY AND PHYSICAL [id number] WENDY RAMIREZ Tobacco dependence syndrome Depressive disorder Insomnia Restless legs Chronic tension-type headache Headache disorder Hearing loss Recurrent pulmonary embolism Acute exacerbation of chronic obstructive airways disease Esophagitis Gastroesophageal reflux disease Gastroesophageal reflux disease with hiatal hernia Gastroparesis syndrome Acute gastroenteritis Constipation Irritable bowel syndrome Spasm of bladder - Onset: 03/07/2017 Female stress incontinence Muscle spasm of cervical muscle of neck Fibromyositis Tremor Dysphasia Anticoagulant adverse reaction Family History Reviewed Family History Unspecified Relation- Malignant neoplastic disease - Father, Mother (previously recorded as Cancer, other) - Hypercholesterolemia - FAther (previously recorded as High Cholesterol) - Ulcer - Father (previously recorded as Ulcers) - Alzheimer's disease ( age: 84) - Father - Cerebrovascular accident ( age: 90) - Mother (previously recorded as Stroke) - Hypertensive disorder - Father (previously recorded as High Blood Pressure) - Heart disease - FatherFather- glaucomaSocial History Reviewed Social History General Education: 2 Year College Marital status: Smoking Status: Current every day smoker (Notes: Trying to quit) Smoker (1 PPD) Alcohol intake: None Caffeine intake: Moderate (Notes: 3 cups) Advance directive: Y Surgical History Reviewed Surgical History Other - BRAIN SURGERY Laparoscopic oni fundoplication - 06/29/2016 Esophagogastroduodenoscopy (surg) - 04/18/2016 Esophagogastroduodenoscopy (surg) - 04/18/2016 Esophagogastroduodenoscopy (surg) - 04/18/2016 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 History (not configured) Past Medical History Reviewed Past Medical History HISTORY AND PHYSICAL [id number] WENDY RAMIREZ Anemia: Y Bladder Problems: Y Blurred Vision: Y COPD: Y Chest Pain: Y Eye Problems: Y GERD: Y Headache: Y Heartburn: Y 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 Shortness of Breath: Y Swelling of Ankles, Feet or Hands: Y Urinary Tract Infection: Y Notes: pneumonia, sinus problems Documents for Discussion Discussed the following documents: XR, CHEST, 2 VIEW - 08/06/18 UNKNOWN - 08/06/18 COMPLETE PFT W/ POST BRONCHODILATOR SPIROMETRY - 08/06/18 UNKNOWN - 08/06/18 Results: - ADMINISTRATION OF GEORGE'S TEST: POSITIVE POSITIVE - ARTERIAL BLOOD BASE EXCESS BY CALCULATION: 1.9 NORMAL - OXYGEN DELIVERY DEVICE: ROOM AIR - ARTERIAL BLOOD GLUCOSE MEASUREMENT (MASS/VOLUME): 98 NORMAL - ARTERIAL BLOOD BICARBONATE MEASUREMENT (MOLES/VOLUME): 24.2 NORMAL - HEMATOCRIT OF ARTERIAL BLOOD: 40 NORMAL - HEMOGLOBIN ARTERIAL: 13.7 NORMAL - ARTERIAL BLOOD IONIZED CALCIUM MEASUREMENT (MASS/VOLUME): 0.99 LOW - POTASSIUM BLOOD ARTERIAL: 3.9 NORMAL - ARTERIAL BLOOD SODIUM MEASUREMENT: 138 NORMAL - O2 SATURATION ARTERIAL BLOOD: 97.7 NORMAL - BLOOD PCO2: 30.4 LOW - ARTERIAL BLOOD GAS PH: 7.510 HIGH - BLOOD PO2: 88 NORMAL - SITE: R RADIAL - TCO2: 25.1 NORMAL Screening None recorded. HPI Dyspnea Reported by patient. Quality: can't get a deep breath; feels 'shallow and fast' Severity: limits activity Onset/Timing: daily Context: with activity Alleviating Factors: rest Associated Symptoms: uses inhaler at times Non-small cell carcinoma left lower lobe ROS Patient reports no cough, no wheezing, no shortness of breath, and no coughing up blood; Hyperresonance. She reports muscle aches, muscle weakness, and arthralgias/joint pain but reports no back pain and no swelling in the extremities. She reports no fever, no night sweats, no significant weight gain, no significant weight loss, and no exercise intolerance. She reports no chest pain, no arm pain on HISTORY AND PHYSICAL [id number] RAMIREZ,WENDY exertion, no shortness of breath when walking, no shortness of breath when lying down, no palpitations, and no known heart murmur. She reports no abdominal pain, no vomiting, normal appetite, no diarrhea, not vomiting blood, no nausea, and no constipation. She reports no abnormal mole, no jaundice, and no rashes. She reports no depression, no sleep disturbances, feeling safe in relationship, and no alcohol abuse. ROS as noted in the HPI Physical Exam Patient is a 72-year-old female. Constitutional: General Appearance healthy-appearing, well developed, and overweight. Level of Distress NAD. Ambulation ambulating normally. Cardiovascular: Apical Impulse not displaced or no thrill. Heart Auscult ation normal s1 and s2; no murmurs, rubs, or gallops; and RRR. Arterial Pulses no abdominal aorta bruits, femoral bruits, or popliteal bruits and 2+ bilateral, carotid 2+ bilateral, femoral 2+ bilateral, popliteal 2+ bilateral, and dorsalis pedis 2+ bilat eral. Edema no edema or varicosities. Lungs: Repiratory Effort no dyspnea. Percussion no dullness or flatness and hyperresonance . Auscultation no wheezing, rhonchi, or rales / crackles and breathing sounds normal, CTA except as noted, and diminished air movement(Basis). Abdomen: Bowl Sounds normal. Inspection and Palpation no tenderness, guarding, masses, or rebound tenderness and soft and non-distended. Liver non-tender and no hepatomegaly. Spleen non-tender and no splenomegaly. Hernia none palpable. Musculoskeletal System: Gait And Stance normal gait and stance. Digits and Nails normal nails and no cyanosis. Joints, Bones, and Muscles limited ROM and abnormal strength. Neurologic: Cranial Nerves grossly intact. Reflexes DTRs 2+ bilaterally throughout. Sensation grossly intact. Lymph Nodes: Lymph Nodes no cervical LAD, supraclavicular LAD, axillary LAD, or inguinal LAD. Eyes: Lids and Conjunctivae no discharge or pallor and non-injected. Pupils PERRLA. Cornea grossly intact. EOM EOMI. Lens clear. Sclera non-icteric. Neck: Neck no masses, enlarged lymph nodes, or carotid bruits and supple and trachea midline. Thyroid no enlargement or nodules and non-tender. Skin: Inspection and Palpation no rash, lesions, ulcers, jaundice, or abnormal nevi. Assessment / Plan Non-small cell carcinoma left lower lobe 1. Adenocarcinoma C80.1: Malignant (primary) neoplasm, unspecified Discussion Notes Pulmonary function tests satisfactory for left lower lobe resection Quantitative lung scan 19% left lower lobe Stop Xarelto 10 days preoperatively Lovenox bridge to surgery HISTORY AND PHYSICAL [id number] WENDY RAMIREZ I have discussed her disease process with her in detail as well as the alternative methods of treatment. We discussed left pulmonary resection including the expected benefits and risk which in cluded bleeding, infection, stroke, , and imponderables. She understands all of the above and wishes to proceed with planned surgery. Return to Office None recorded. CELESTE BOO MD CC: [id number] DICTATION DATE: 08/16/18 1320 POT LINER: MICH 08/28/18 0947 ADM IN [place] [id number] [place] [address]
--- NOTE | ~2018-08-27 | MORECARE ---
CASE MANAGEMENT DISCHARGE SUMMARY PATIENT: WENDY RAMIREZ UNIT: [id number] ADM DATE: 08/27/18 AGE: 73 : 43 SEX: F ROOM/BED: D[facility] AUTHOR: TORREY SUMMERS PHYSICIAN: REFERRING PHYSICIAN: CELESTE BOO MD DATE OF SERVICE: 08/29/18 Discharge Plan Patient Name: WENDY RAMIREZ Facility: [facility]:[place] : 1945 Planned Disposition: Home Anticipated Discharge Date: Discharge Date: Expected LOS: Initial Reviewer: [email or web address] Initial Review Date: 08/28/2018 Generated: 08/29/18 5:06 pm Comments DCP- Discharge Planning Updated by [email or web address]: Allegra Escobar on 08/29/18 3:[address] Patient Name: WENDY RAMIREZ Admission Status: Elective Accout number: [id number] Admission Date: 08-27-2018 : 1945 Admission Diagnosis:MALIGNANT NEOPLASM OF LOWER LOBE, LEFT BRONCHUS OR LUNG Attending: CELESTE BOO Current LOS: 2 Anticipated DC Date: Planned Disposition: Home Primary Insurance: [facility] MEDICARE SOLUTIONS Discharge Planning Comments: CM met with patient at bedside. Patient plans to return to her home with her daughter and family. Patient denies any discharge needs at this time. CM will continue to follow and assist with discharge planning / needs. Stove Installer: Allegra Escobar DCPIA - Discharge Planning Initial Assessment Updated by [email or web address]: Allegra Escobar on 08/29/18 4:03 pm * Is the patient Alert and Oriented? Yes * How many steps to enter\exit or inside your home? * PCP Frida * Pharmacy [facility] * Preadmission Environment Home with Family * ADLs Independent * Equipment Oxygen * Other Equipment home 02, walker with seat, shower chair, * Additional services required to return to the preadmission environment? No * Can the patient safely return to the preadmission environment? Yes * Has this patient been hospitalized within the prior 30 days at any hospital? No Patient Name: WENDY RAMIREZ Page 29206 at 1606 All edits/amendments must be made on the electronic document DICTATION DATE: 08/29/181605 HOSPITAL SECURITY OFFICER: MICH 08/29/181605 RPT#: [id number] [place] DATE: STATUS: ADM IN [facility] [address] [place] [address] END OF REPORT
[2018-08-27] MEDS ORDERED: ALDACTONE25 MG PO (05:49)
[2018-08-27] MEDS ORDERED: EFFEXOR50 MG PO (05:51)
[2018-08-27] MEDS ORDERED: CARAFATE1 G PO (05:52)
[2018-08-27] MEDS ORDERED: ADVAIR (06:08)
[2018-08-28] VITALS (101 sets, daily range): BP systolic 84–134; BP diastolic 39–80; Ht 175.3 cm; Wt 85.5 kg
[2018-08-28 07:06] LABS: ALBUMIN 2.4 g/dL (3.4-5.0); ANION GAP 15.4 mmol/L (8-16); BILIRUBIN - TOTAL 0.39 mg/dL (0.2-1.3); CALCIUM 7.6 mg/dL (8.5-10.1); CARBON DIOXIDE 23.7 mmol/L (21.0-32.0); CREATININE - SERUM 0.8 mg/dL (0.6-1.3); POTASSIUM - SERUM 4.1 mmol/L (3.5-5.1); PROTEIN - SERUM 5.9 g/dL (6.4-8.2)
[2018-08-28 07:19] LABS: HEMATOCRIT 34.6 % (36.0-48.0); HEMOGLOBIN 11.4 g/dL (12-16); MCH 29.8 pg (26.0-34.0); MCHC 32.9 g/dL (31.0-37.0); MCV 90.6 fL (80.0-100.0); MEAN PLATELET VOLUME 11.4 fL (7.4-10.4); RBC 3.82 10x6/uL (4.00-5.40); RDW 14.1 % (11.5-14.5); WBC 12.8 10x3/uL (4.8-10.8)
[2018-08-29] VITALS (77 sets, daily range): BP systolic 82–140; BP diastolic 40–78
[2018-08-29 06:58] LABS: HEMATOCRIT 32.1 % (36.0-48.0); HEMOGLOBIN 10.4 g/dL (12-16); MCH 30.1 pg (26.0-34.0); MCHC 32.4 g/dL (31.0-37.0); MEAN PLATELET VOLUME 10.9 fL (7.4-10.4); RBC 3.46 10x6/uL (4.00-5.40); RDW 14.5 % (11.5-14.5)
[2018-08-29 07:02] LABS: WBC 8.2 10x3/uL (4.8-10.8)
[2018-08-29 07:03] LABS: MCV 92.8 fL (80.0-100.0)
[2018-08-29 07:13] LABS: ALBUMIN 2.2 g/dL (3.4-5.0); ANION GAP 13.3 mmol/L (8-16); BILIRUBIN - TOTAL 0.43 mg/dL (0.2-1.3); CALCIUM 7.2 mg/dL (8.5-10.1); CARBON DIOXIDE 25.6 mmol/L (21.0-32.0); CREATININE - SERUM 0.8 mg/dL (0.6-1.3); POTASSIUM - SERUM 3.9 mmol/L (3.5-5.1); PROTEIN - SERUM 5.7 g/dL (6.4-8.2)
[2018-08-30] VITALS (35 sets, daily range): BP systolic 80–133; BP diastolic 46–79
[2018-08-30 06:06] LABS: HEMATOCRIT 31.5 % (36.0-48.0); HEMOGLOBIN 10.2 g/dL (12-16); MCH 29.8 pg (26.0-34.0); MCHC 32.4 g/dL (31.0-37.0); MCV 92.1 fL (80.0-100.0); MEAN PLATELET VOLUME 11.2 fL (7.4-10.4); RBC 3.42 10x6/uL (4.00-5.40); RDW 13.8 % (11.5-14.5); WBC 7.3 10x3/uL (4.8-10.8)
[2018-08-30 06:51] LABS: ALKALINE PHOSPHATASE 137 U/L (46-116); ALT (SGPT) 41 U/L (10-68); BILIRUBIN - TOTAL 0.31 mg/dL (0.2-1.3); CALC OSMOLALITY 270 mosm/kg (275-300); CALCIUM 8.2 mg/dL (8.5-10.1); CARBON DIOXIDE 28.1 mmol/L (21.0-32.0); CHLORIDE - SERUM 100 mmol/L (98-107); CREATININE - SERUM 0.7 mg/dL (0.6-1.3); GLUCOSE 128 mg/dL (74-106); POTASSIUM - SERUM 4.3 mmol/L (3.5-5.1); PROTEIN - SERUM 5.6 g/dL (6.4-8.2); SODIUM 135 mmol/L (136-145); UREA NITROGEN 9 mg/dL (7-18); eGFR NON AFRICAN AMERICAN 86 mL/min (90-120)
[2018-08-31] VITALS (24 sets, daily range): BP systolic 90–145; BP diastolic 50–84
[2018-08-31] MEDS ORDERED: OXYCODONE-APAP1 TAB PO (08:43)
[2018-09-01] VITALS (13 sets, daily range): BP systolic 88–104; BP diastolic 43–61
== END 2018-09-01 13:07 | disposition home or self-care (01) | DRG 164 ==
LOC: D.CVICU 05:00 → D.SDCHOLD 05:00 → D.CVICU 08:39
PROVIDERS: Internal Medicine Cardiovascular Disease
PROC: 07T70ZZ Resection of Thorax Lymphatic, Open Approach (ICD-10-PCS; 2018-08-27)
PROC: 0BTJ0ZZ Resection of Left Lower Lung Lobe, Open Approach (ICD-10-PCS; principal; 2018-08-27 07:30)
DX: C34.32 Malignant neoplasm of lower lobe, left bronchus or lung (principal); F02.81 Dementia in other diseases classified elsewhere, unspecified severity, with behavioral disturbance; G30.9 Alzheimer's disease, unspecified; E78.5 Hyperlipidemia, unspecified; J44.9 Chronic obstructive pulmonary disease, unspecified; F31.9 Bipolar disorder, unspecified; E03.9 Hypothyroidism, unspecified

== ENCOUNTER 2018-09-10 15:11 | Emergency (ER) | payer MEDICARE, MEDICAID ==
[~2018-09-10] VITALS: Ht 175.3 cm; Wt 79.1 kg
[~2018-09-10 15:11] MED LIST changes: +ADVAIR; +ALDACTONE25 MG PO; +OXYCODONE-APAP1 TAB PO
[2018-09-10 15:18] VITALS: Ht 175.3 cm; Wt 79.1 kg
[2018-09-10 16:17] LABS: BASOPHILS 0.2 % (0-2); EOSINOPHILS 4.8 % (0-7); HEMATOCRIT 41.3 % (36.0-48.0); IMMATURE GRANULOCYTES 0.5 % (0-5); LYMPHOCYTES 28.7 % (15-50); MCH 30.6 pg (26.0-34.0); MCHC 33.9 g/dL (31.0-37.0); MCV 90.2 fL (80.0-100.0); MEAN PLATELET VOLUME 10.4 fL (7.4-10.4); MONOCYTES 8.7 % (2-11); NEUTROPHILS 57.1 % (40-80); RBC 4.58 10x6/uL (4.00-5.40); RDW 13.6 % (11.5-14.5); WBC 9.6 10x3/uL (4.8-10.8)
[2018-09-10 16:19] LABS: PLATELET COUNT 289 10x3/uL (130-400)
[2018-09-10 16:33] LABS: ALBUMIN 3.5 g/dL (3.4-5.0); ALKALINE PHOSPHATASE 194 U/L (46-116); ALT (SGPT) 22 U/L (10-68); BILIRUBIN - TOTAL 0.28 mg/dL (0.2-1.3); CALC OSMOLALITY 274 mosm/kg (275-300); CALCIUM 9.7 mg/dL (8.5-10.1); CARBON DIOXIDE 23.1 mmol/L (21.0-32.0); CHLORIDE - SERUM 101 mmol/L (98-107); GLUCOSE 101 mg/dL (74-106); PROTEIN - SERUM 8.2 g/dL (6.4-8.2); SODIUM 138 mmol/L (136-145); UREA NITROGEN 11 mg/dL (7-18); eGFR NON AFRICAN AMERICAN 57 mL/min (90-120)
[2018-09-10 16:45] LABS: CKMB 0.7 U/L (0.0-3.6); CREATINE KINASE 50 UL (21-215); PRO BNP 94 pg/mL (0-450); TROPONIN-I < 0.017 ng/mL (0.000-0.060)
[2018-09-10] MEDS ORDERED: NORCO 10-325 TA1 TAB PO (19:10)
[2018-09-10 19:30] VITALS: BP 155/82
== END 2018-09-10 19:30 | disposition home or self-care (01) ==
LOC: D.ER 15:11
PROVIDERS: Family Medicine
DX: G89.18 Other acute postprocedural pain (principal); J44.9 Chronic obstructive pulmonary disease, unspecified; Z99.81 Dependence on supplemental oxygen

== ENCOUNTER 2018-09-12 14:00 | Emergency (ER) | payer MEDICARE, MEDICAID ==
[~2018-09-12] VITALS: Ht 175.3 cm; Wt 79.1 kg
[~2018-09-12 14:00] MED LIST changes: +NORCO 10-325 TA1 TAB PO
[2018-09-12 15:19] VITALS: Ht 175.3 cm; Wt 79.1 kg
[2018-09-12 16:58] LABS: INR 0.98 (0.85-1.17); PROTIME 12.5 SECONDS (11.6-15.0)
[2018-09-12 17:28] LABS: BASOPHILS 0.3 % (0-2); HEMATOCRIT 39.8 % (36.0-48.0); HEMOGLOBIN 13.3 g/dL (12-16); LYMPHOCYTES 26.4 % (15-50); MCH 30.2 pg (26.0-34.0); MCHC 33.4 g/dL (31.0-37.0); MCV 90.2 fL (80.0-100.0); MEAN PLATELET VOLUME 11.7 fL (7.4-10.4); MONOCYTES 11.1 % (2-11); NEUTROPHILS 57.2 % (40-80); RBC 4.41 10x6/uL (4.00-5.40); RDW 13.8 % (11.5-14.5); WBC 6.3 10x3/uL (4.8-10.8)
[2018-09-12 17:29] LABS: PLATELET COUNT 219 10x3/uL (130-400)
[2018-09-12 17:35] LABS: ALBUMIN 3.5 g/dL (3.4-5.0); ALKALINE PHOSPHATASE 186 U/L (46-116); ALT (SGPT) 25 U/L (10-68); BILIRUBIN - TOTAL 0.26 mg/dL (0.2-1.3); CALC OSMOLALITY 276 mosm/kg (275-300); CALCIUM 9.8 mg/dL (8.5-10.1); CARBON DIOXIDE 22.2 mmol/L (21.0-32.0); CHLORIDE - SERUM 102 mmol/L (98-107); CREATININE - SERUM 0.9 mg/dL (0.6-1.3); GLUCOSE 100 mg/dL (74-106); PROTEIN - SERUM 8.2 g/dL (6.4-8.2); SODIUM 139 mmol/L (136-145); UREA NITROGEN 11 mg/dL (7-18); eGFR NON AFRICAN AMERICAN 65 mL/min (90-120)
[2018-09-12 17:46] LABS: C-REACTIVE PROTEIN 3.7 mg/dL (0.0-0.9); CKMB 0.8 U/L (0.0-3.6); CREATINE KINASE 280 UL (21-215); PRO BNP 46 pg/mL (0-450); TROPONIN-I < 0.017 ng/mL (0.000-0.060)
[2018-09-12] MEDS ORDERED: CYCLOBENZAPRINE10 MG PO (22:04)
[2018-09-12] MEDS ORDERED: NORCO 7.5/325 T1 TA1 PO (22:04)
[2018-09-12 22:27] VITALS: BP 123/76
== END 2018-09-12 22:28 | disposition home or self-care (01) ==
LOC: D.ER 15:01
PROVIDERS: Family Medicine
DX: S22.32XA Fracture of one rib, left side, initial encounter for closed fracture (principal); X58.XXXA Exposure to other specified factors, initial encounter; Y93.89 Activity, other specified; Y92.89 Other specified places as the place of occurrence of the external cause; R07.81 Pleurodynia; F17.200 Nicotine dependence, unspecified, uncomplicated; J44.9 Chronic obstructive pulmonary disease, unspecified; Z99.81 Dependence on supplemental oxygen; R00.0 Tachycardia, unspecified

== ENCOUNTER → 2018-09-20 12:30 | Outpatient (CLI) | payer MEDICARE, MEDICAID ==
[2018-09-12 15:19] VITALS: BMI 25.7
[~2018-09-20 12:30] MED LIST changes: +CYCLOBENZAPRINE10 MG PO; +NORCO 7.5/325 T1 TA1 PO
== END | disposition home or self-care (01) ==
LOC: D.RAD 12:30
DX: C34.90 Malignant neoplasm of unspecified part of unspecified bronchus or lung (principal); R05 Cough

== ENCOUNTER 2018-09-20 13:16 | Emergency (ER) | payer MEDICARE, MEDICAID ==
[2018-09-12 15:19] VITALS: BMI 25.7
== END 2018-09-20 13:26 | disposition left against medical advice (07) ==
LOC: D.ER 13:16
DX: R06.02 Shortness of breath (principal)

== ENCOUNTER → 2018-10-04 14:24 | Outpatient (CLI) | payer MEDICARE, MEDICAID ==
[2018-09-12 15:19] VITALS: BMI 25.7
[2018-10-04 14:57] LABS: HEMATOCRIT 41.1 % (36.0-48.0); HEMOGLOBIN 13.9 g/dL (12-16); MCH 30.3 pg (26.0-34.0); MCHC 33.8 g/dL (31.0-37.0); MCV 89.7 fL (80.0-100.0); MEAN PLATELET VOLUME 11.2 fL (7.4-10.4); RBC 4.58 10x6/uL (4.00-5.40); RDW 13.3 % (11.5-14.5); WBC 8.4 10x3/uL (4.8-10.8)
== END | disposition home or self-care (01) ==
LOC: D.LAB 14:24
DX: D64.9 Anemia, unspecified (principal); C34.90 Malignant neoplasm of unspecified part of unspecified bronchus or lung; N64.59 Other signs and symptoms in breast

== ENCOUNTER → 2018-11-26 12:21 | Outpatient (CLI) | payer MEDICARE ==
[2018-09-12 15:19] VITALS: BMI 25.7
[2018-11-26 13:41] LABS: ALBUMIN 3.5 g/dL (3.4-5.0); ANION GAP 11.3 mmol/L (8-16); BILIRUBIN - TOTAL 0.2 mg/dL (0.2-1.3); CALCIUM 8.8 mg/dL (8.5-10.1); CARBON DIOXIDE 26.7 mmol/L (21.0-32.0); CHOL - HDL RATIO 4.3 ratio (2.3-4.1); CREATININE - SERUM 0.9 mg/dL (0.6-1.3); LDL-HDL RATIO 2.6 ratio (1.5-3.5); PROTEIN - SERUM 7.3 g/dL (6.4-8.2); THYROID STIMULATING HORMONE 2.56 uIU/mL (0.36-3.74)
[2018-11-26 13:50] LABS: BASOPHILS 0.3 % (0-2); EOSINOPHILS 3.4 % (0-7); HEMATOCRIT 39.9 % (36.0-48.0); IMMATURE GRANULOCYTES 0.2 % (0-5); LYMPHOCYTES 40.7 % (15-50); MCH 29.1 pg (26.0-34.0); MCHC 32.6 g/dL (31.0-37.0); MCV 89.5 fL (80.0-100.0); MEAN PLATELET VOLUME 11.5 fL (7.4-10.4); NEUTROPHILS 49.4 % (40-80); RBC 4.46 10x6/uL (4.00-5.40); RDW 13.2 % (11.5-14.5); WBC 6.2 10x3/uL (4.8-10.8)
[2018-11-26 13:56] LABS: PLATELET COUNT 119 10x3/uL (130-400)
== END | disposition home or self-care (01) ==
LOC: D.LAB 12:21
PROVIDERS: ATTEND Family Medicine
DX: M81.0 Age-related osteoporosis without current pathological fracture (principal)

== ENCOUNTER → 2019-01-25 11:35 | Outpatient (CLI) | payer MEDICARE, MEDICAID ==
[2018-09-12 15:19] VITALS: BMI 25.7
[2019-01-25 12:10] LABS: BASOPHILS 0.2 % (0-2); EOSINOPHILS 3.3 % (0-7); HEMATOCRIT 42.2 % (36.0-48.0); HEMOGLOBIN 13.7 g/dL (12-16); IMMATURE GRANULOCYTES 0.2 % (0-5); LYMPHOCYTES 29.8 % (15-50); MCH 29.5 pg (26.0-34.0); MCHC 32.5 g/dL (31.0-37.0); MCV 90.8 fL (80.0-100.0); MEAN PLATELET VOLUME 11.8 fL (7.4-10.4); MONOCYTES 7.3 % (2-11); NEUTROPHILS 59.2 % (40-80); RBC 4.65 10x6/uL (4.00-5.40); RDW 14.2 % (11.5-14.5); WBC 6.4 10x3/uL (4.8-10.8)
[2019-01-25 12:27] LABS: PLATELET COUNT 91 10x3/uL (130-400)
[2019-01-25 12:39] LABS: ALBUMIN 3.4 g/dL (3.4-5.0); ANION GAP 12.7 mmol/L (8-16); BILIRUBIN - TOTAL 0.36 mg/dL (0.2-1.3); CARBON DIOXIDE 27.6 mmol/L (21.0-32.0); CHOL - HDL RATIO 4.8 ratio (2.3-4.1); LDL-HDL RATIO 2.9 ratio (1.5-3.5); POTASSIUM - SERUM 4.3 mmol/L (3.5-5.1); PROTEIN - SERUM 7.1 g/dL (6.4-8.2); THYROID STIMULATING HORMONE 2.98 uIU/mL (0.36-3.74)
[2019-01-25 13:32] LABS: PLATELET ESTIMATE DECREASED
== END | disposition home or self-care (01) ==
LOC: D.LAB 11:35
PROVIDERS: ATTEND Family Medicine
DX: R42 Dizziness and giddiness (principal); E55.9 Vitamin D deficiency, unspecified; J44.9 Chronic obstructive pulmonary disease, unspecified; E78.5 Hyperlipidemia, unspecified; C34.90 Malignant neoplasm of unspecified part of unspecified bronchus or lung

== ENCOUNTER 2019-07-30 17:08 | Emergency (ER) | payer MEDICARE ==
[~2019-07-30] VITALS: Ht 175.3 cm; Wt 70.5 kg
[2019-07-30 17:20] VITALS: Ht 175.3 cm; Wt 70.5 kg
[2019-07-30] MEDS ORDERED: HYDROCODONE-A1 UDTA2 PO (19:33)
[2019-07-30] MEDS ORDERED: CLEOCIN HCL300 MG PO (19:33)
[2019-07-30 19:49] VITALS: BP 135/73
== END 2019-07-30 19:50 | disposition home or self-care (01) ==
LOC: D.ER 17:08
DX: L73.2 Hidradenitis suppurativa (principal); R51 Headache; H26.9 Unspecified cataract; J44.9 Chronic obstructive pulmonary disease, unspecified; Z99.81 Dependence on supplemental oxygen; R06.81 Apnea, not elsewhere classified; F31.9 Bipolar disorder, unspecified; F41.8 Other specified anxiety disorders; M81.8 Other osteoporosis without current pathological fracture; Z87.440 Personal history of urinary (tract) infections; Z90.710 Acquired absence of both cervix and uterus

== ENCOUNTER → 2019-08-20 10:02 | Outpatient (CLI) | payer MEDICARE ==
[2019-07-30 17:20] VITALS: BMI 22.9
[~2019-08-20 10:02] MED LIST changes: +CLEOCIN HCL300 MG PO; +HYDROCODONE-A1 UDTA2 PO
== END | disposition home or self-care (01) ==
LOC: D.CT 10:02
PROVIDERS: ATTEND Internal Medicine Cardiovascular Disease
DX: C80.1 Malignant (primary) neoplasm, unspecified (principal)

== ENCOUNTER 2019-09-06 05:25 | Day surgery (SDC) | payer MEDICARE ==
[2019-09-05 11:55] LABS: BASOPHILS 0.1 % (0-2); EOSINOPHILS 1.9 % (0-7); HEMATOCRIT 41.2 % (36.0-48.0); HEMOGLOBIN 13.8 g/dL (12-16); IMMATURE GRANULOCYTES 0.2 % (0-5); LYMPHOCYTES 24.7 % (15-50); MCHC 33.5 g/dL (31.0-37.0); MCV 92.6 fL (80.0-100.0); MEAN PLATELET VOLUME 11.5 fL (7.4-10.4); MONOCYTES 7.8 % (2-11); NEUTROPHILS 65.3 % (40-80); PLATELET COUNT 141 10x3/uL (130-400); RBC 4.45 10x6/uL (4.00-5.40); RDW 12.9 % (11.5-14.5); WBC 9.1 10x3/uL (4.8-10.8)
[2019-09-05 12:05] LABS: APTT 28.1 SECONDS (22.8-39.4); INR 1.09 (0.85-1.17); PROTIME 13.6 SECONDS (11.6-15.0)
[2019-09-05 12:11] LABS: ANION GAP 12.8 mmol/L (8-16); CALCIUM 9.2 mg/dL (8.5-10.1); CARBON DIOXIDE 27.5 mmol/L (21.0-32.0); CREATININE - SERUM 0.9 mg/dL (0.6-1.3); POTASSIUM - SERUM 4.3 mmol/L (3.5-5.1)
[~2019-09-06] VITALS: Ht 175.3 cm; Wt 71.2 kg
--- NOTE | ~2019-09-06 | OP ---
PATIENT NAME: WENDY RAMIREZ MEDICAL RECORD: [id number] :41 LOCATION:D.OPS ADMISSION DATE: SURGEON: RICK BECK MD DATE OF OPERATION: 09/06/2019 PREOPERATIVE DIAGNOSES: 1. Mass of the right axilla. 2. Hypertriglyceridemia. 3. Recurrent pulmonary emboli. 4. Chronic obstructive pulmonary disease. POSTOPERATIVE DIAGNOSES: 1. Mass of the right axilla. 2. Hypertriglyceridemia. 3. Recurrent pulmonary emboli. 4. Chronic obstructive pulmonary disease. PROCEDURE: Excision of a 3 cm right axillary mass. SURGEON: Rick Beck MD REPORT OF PROCEDURE: The patient's right axilla was prepped and draped in sterile fashion. There was a palpable mass that was incorporating and underneath the skin in the subcutaneous tissues. An ovoid incision was made around this mass going from anterior to posterior. Using sharp dissection, we dissected through the skin and then using electrocautery came through the surrounding fatty tissue. I was able to get completely underneath this mass. We made sure to at least grossly have a realm of grossly normal tissue around the mass. Once the mass was completely excised, it was measured out to be 3 cm wide x 5 cm long. The subcutaneous tissues were treated with electrocautery to stop any bleeding that was encountered. We eventually were able to make the wound bed dry. We could see that we were only in the subcutaneous tissues and did not have to penetrate through any fascia or surrounding fatty tissue. The subcutaneous tissues were reapproximated with multiple interrupted 3-0 Vicryls and the skin was closed with running subcutaneous 5-0 Monocryl. A 10 mL of 0.25% Marcaine with epinephrine was infused into the surrounding tissues and the wound was dressed appropriately. COMPLICATIONS: None. CONDITION: Stable. ANESTHESIA: General endotracheal and local. BLOOD LOSS: 100 mL. TRANSINT:[id number] Voice Confirmation ID: [id number] DOCUMENT ID: [id number] OPERATIVE REPORT [id number] WENDY RAMIREZ RICK BECK MD CC: NIGEL AGUILAR MD, SARIAH CHANDLER EDWARD [phone] DICTATION DATE: 09/06/19 0905 RODENT EXTERMINATOR: 09/06/19 [id number] [place] [address]
[2019-09-06] MEDS ORDERED: HYDROCODON-ACE1 EA10 PO (06:43)
[2019-09-06] MEDS ORDERED: LEVOXYL50 MCG PO (06:46)
[2019-09-06 06:52] VITALS: BP 123/76; Ht 175.3 cm; Wt 71.2 kg
== END 2019-09-06 11:02 | disposition home or self-care (01) ==
LOC: D.OPS 05:25 → D.PAN 07:30 → D.OPS 07:30
PROVIDERS: Anesthesiology; ATTEND Surgery
DX: R22.31 Localized swelling, mass and lump, right upper limb (principal); E78.1 Pure hyperglyceridemia; I26.99 Other pulmonary embolism without acute cor pulmonale; J44.9 Chronic obstructive pulmonary disease, unspecified; R13.10 Dysphagia, unspecified; G44.209 Tension-type headache, unspecified, not intractable; K21.9 Gastro-esophageal reflux disease without esophagitis; K31.84 Gastroparesis; N63.31 Unspecified lump in axillary tail of the right breast; F17.200 Nicotine dependence, unspecified, uncomplicated

== ENCOUNTER 2020-01-02 18:08 | Emergency (ER) | payer MEDICARE, MEDICAID ==
[~2020-01-02] VITALS: Ht 175.3 cm; Wt 65.9 kg
[~2020-01-02 18:08] MED LIST changes: +HYDROCODON-ACE1 EA10 PO; +LEVOXYL50 MCG PO
[2020-01-02 18:28] VITALS: Ht 175.3 cm; Wt 65.9 kg
[2020-01-02 19:44] LABS: BASOPHILS 0.1 % (0-2); EOSINOPHILS 1.6 % (0-7); HEMATOCRIT 46.7 % (36.0-48.0); HEMOGLOBIN 15.2 g/dL (12-16); IMMATURE GRANULOCYTES 0.2 % (0-5); MCH 29.9 pg (26.0-34.0); MCHC 32.5 g/dL (31.0-37.0); MCV 91.9 fL (80.0-100.0); MEAN PLATELET VOLUME 11.2 fL (7.4-10.4); MONOCYTES 7.5 % (2-11); NEUTROPHILS 64.6 % (40-80); PLATELET COUNT 163 10x3/uL (130-400); RBC 5.08 10x6/uL (4.00-5.40); RDW 12.7 % (11.5-14.5); WBC 8.8 10x3/uL (4.8-10.8)
[2020-01-02 19:57] LABS: APTT 34.7 SECONDS (22.8-39.4); INR 1.18 (0.85-1.17); PROTIME 14.9 SECONDS (11.6-15.0)
[2020-01-02 20:00] LABS: SPECIFIC GRAVITY 1.015 (1.005-1.020)
[2020-01-02 20:01] LABS: BILIRUBIN NEGATIVE (NEGATIVE); GLUCOSE NEGATIVE (NEGATIVE); KETONE NEGATIVE (NEGATIVE); NITRITE NEGATIVE (NEGATIVE); UROBILINOGEN NORMAL (NORMAL)
[2020-01-02 20:04] LABS: BACTERIA FEW /hpf (NEGATIVE); EPITHELIAL CELLS 0-5 /hpf (0-5); RED CELLS - URINE 0-5 /hpf (0-5); WHITE CELLS - URINE 0-5 /hpf (NEGATIVE)
[2020-01-02 20:19] LABS: CALC OSMOLALITY 266 mosm/kg (275-300); CALCIUM 9.1 mg/dL (8.5-10.1); CARBON DIOXIDE 23.1 mmol/L (21.0-32.0); CHLORIDE - SERUM 97 mmol/L (98-107); CREATININE - SERUM 1.2 mg/dL (0.6-1.3); GLUCOSE 100 mg/dL (74-106); POTASSIUM - SERUM 4.1 mmol/L (3.5-5.1); SODIUM 133 mmol/L (136-145); UREA NITROGEN 15 mg/dL (7-18); eGFR NON AFRICAN AMERICAN 46 mL/min (90-120)
[2020-01-02 20:23] LABS: ALKALINE PHOSPHATASE 152 U/L (30-120); ALT (SGPT) 24 U/L (10-68); BILIRUBIN - TOTAL 0.45 mg/dL (0.2-1.3); CKMB 0.9 U/L (0.0-3.6); CREATINE KINASE 118 UL (21-215); PROTEIN - SERUM 7.5 g/dL (6.4-8.2)
[2020-01-02 20:24] LABS: TROPONIN-I < 0.017 ng/mL (0.000-0.060)
[2020-01-02 22:22] VITALS: BP 112/70
== END 2020-01-02 22:22 | disposition home or self-care (01) ==
LOC: D.ER 18:08
PROVIDERS: Emergency Medicine
DX: E86.0 Dehydration (principal); R42 Dizziness and giddiness; R06.02 Shortness of breath; C34.90 Malignant neoplasm of unspecified part of unspecified bronchus or lung; E07.9 Disorder of thyroid, unspecified; J44.9 Chronic obstructive pulmonary disease, unspecified; Z99.81 Dependence on supplemental oxygen; Z72.0 Tobacco use

== ENCOUNTER 2020-01-24 14:14 | Emergency (ER) | payer MEDICARE, MEDICAID ==
[~2020-01-24] VITALS: Ht 175.3 cm; Wt 70.9 kg
[2020-01-24 14:26] VITALS: Ht 175.3 cm; Wt 70.9 kg
[2020-01-24] MEDS ORDERED: HYDROCODON-ACE1 EAC2 PO (15:07)
[2020-01-24 15:44] VITALS: BP 128/74
== END 2020-01-24 15:44 | disposition home or self-care (01) ==
LOC: D.ER 14:14
DX: C34.90 Malignant neoplasm of unspecified part of unspecified bronchus or lung (principal); R07.9 Chest pain, unspecified; E07.9 Disorder of thyroid, unspecified; J44.9 Chronic obstructive pulmonary disease, unspecified; Z99.81 Dependence on supplemental oxygen; Z72.0 Tobacco use; R10.9 Unspecified abdominal pain

== ENCOUNTER 2020-03-06 09:41 | Observation (INO) | payer MEDICARE, MEDICAID ==
[2020-03-06] VITALS (7 sets, daily range): BP systolic 110–133; BP diastolic 54–91; Ht 175.3 cm; Wt 63.6 kg
[~2020-03-06] VITALS: Ht 175.3 cm; Wt 63.6 kg
[~2020-03-06 09:41] MED LIST changes: +HYDROCODON-ACE1 EAC2 PO
[2020-03-06 10:29] LABS: BASOPHILS 0.3 % (0-2); EOSINOPHILS 4.5 % (0-7); HEMATOCRIT 47.6 % (36.0-48.0); HEMOGLOBIN 15.7 g/dL (12-16); IMMATURE GRANULOCYTES 0.1 % (0-5); LYMPHOCYTES 31.3 % (15-50); MCH 29.8 pg (26.0-34.0); MCV 90.3 fL (80.0-100.0); MEAN PLATELET VOLUME 12.7 fL (7.4-10.4); MONOCYTES 6.4 % (2-11); NEUTROPHILS 57.4 % (40-80); RBC 5.27 10x6/uL (4.00-5.40); RDW 13.4 % (11.5-14.5)
[2020-03-06 10:51] LABS: CALC OSMOLALITY 278 mosm/kg (275-300); CARBON DIOXIDE 24.5 mmol/L (21.0-32.0); CHLORIDE - SERUM 105 mmol/L (98-107); CREATININE - SERUM 0.9 mg/dL (0.6-1.3); GLUCOSE 102 mg/dL (74-106); POTASSIUM - SERUM 3.7 mmol/L (3.5-5.1); SODIUM 141 mmol/L (136-145); UREA NITROGEN 7 mg/dL (7-18); eGFR NON AFRICAN AMERICAN 64 mL/min (90-120)
[2020-03-06 11:00] LABS: ALBUMIN 3.3 g/dL (3.4-5.0); ALKALINE PHOSPHATASE 157 U/L (30-120); ALT (SGPT) 22 U/L (10-68); AMYLASE - SERUM 22 U/L (25-115); BILIRUBIN - TOTAL 0.32 mg/dL (0.2-1.3); LIPASE 83 U/L (73-393); PROTEIN - SERUM 6.5 g/dL (6.4-8.2); TROPONIN-I < 0.017 ng/mL (0.000-0.060)
[2020-03-06 11:04] LABS: PLATELET COUNT 124 10x3/uL (130-400)
--- NOTE | 2020-03-06 12:08 | NUR ---
URINE TO LAB.
[2020-03-06 12:33] LABS: BACTERIA MODERATE /hpf (NEGATIVE); BILIRUBIN NEGATIVE (NEGATIVE); EPITHELIAL CELLS 0-5 /hpf (0-5); GLUCOSE NEGATIVE (NEGATIVE); HYALINE CAST OCC /lpf (NONE SEEN); KETONE NEGATIVE (NEGATIVE); NITRITE NEGATIVE (NEGATIVE); SPECIFIC GRAVITY 1.015 (1.005-1.020); UROBILINOGEN 4 mg/dL (NORMAL); WHITE CELLS - URINE 0-5 /hpf (NEGATIVE)
--- NOTE | 2020-03-06 16:22 | NUR ---
AT APPROX 1550 I ENTERED THE PATIENTS ROOM TO GIVE THEM AN UPDRAFT AND FOUND THE PATIENT WITH A NASASL CANNULA IN THEIR NOSE BUT NOT HOOKED TO A FLOW METER AND NO FLOW METER IN THE ROOM. THE PATIENT'S SPO2 WAS 88% AND STATED SHE HAS 2L O2 AT HOME. I HOOKED HER OXYGEN UP AND SHE RECOVERED TO 95%.
--- NOTE | 2020-03-06 19:30 | NUR ---
BEDSIDE ROUNDS MADE WITH DAY SHIFT NURSE.
--- NOTE | 2020-03-06 19:30 | NUR ---
INTRODUCED MYSELF TO PT. EXPLAINED THAT I WILL BE BACK IN A LITTLE WHILE TO DO AN ASSESSMENT. SHE VERBALIZED UNDERSTANDING.
--- NOTE | 2020-03-06 20:45 | NUR ---
ASSESSMENT COMPLETED. PT STATES SHE IS SO THANKFUL FOR HAVING SOME PAIN RELIEF. SHE HAS A [employer] OFFICER PUMP THAT THE PT KNOWS HOW TO USE. INCENTATIVE SPIROMETER GIVEN TO PT AND AN EXPLANATION OF USE GIVEN. SKIN IS WARM AND DRY. SHE NAPS MOST OF THE TIME BUT WAKES UP EASILY. SHE ASKED FOR A LITTLE JELLO AND THIS WAS GIVEN. PT HAS SCD'S ON.
--- NOTE | 2020-03-06 22:30 | NUR ---
PT IS SLEEPING AT THIS TIME. NO C/O OR NEEDS AT THIS TIME.
[2020-03-07] VITALS: BP 96/59
--- NOTE | 2020-03-07 00:52 | NUR ---
PT IS STILL SLEEPING. SHE WILL WAKE UP LONG ENOUGH TO PUSH HER MS BUILDINGS AND GROUNDS DIRECTOR BUTTON AND THEN IS BACK TO SLEEP.
--- NOTE | 2020-03-07 02:05 | NUR ---
PT IS SLEEPING SOUNDLY ON HER LEFT SIDE. SHE HAS NO C/O OR NEEDS AT THIS TIME.
[2020-03-07 04:00] VITALS: BP 89/46
--- NOTE | 2020-03-07 04:10 | NUR ---
PT IS SLEEPING. NO C/O AT THIS TIME. SCD'S IN PLACE
--- NOTE | 2020-03-07 06:04 | NUR ---
PT CONT TO SLEEP. WHEN SHE WOKE UP FOR HER MED SHE WAS SLURRING HER WORDS.
--- NOTE | 2020-03-07 08:24 | NUR ---
RESTING IN BED, EYES CLOSED, NO DISTRESS NOTED, IV INFUSING MATE FISHING VESSEL IN PLACE, CONT TO MONITOR PAIN
[2020-03-07 08:38] VITALS: BP 136/75
[2020-03-07 13:07] VITALS: BP 95/51
[2020-03-07 16:53] VITALS: BP 111/60
[2020-03-07 20:00] VITALS: BP 113/65
[2020-03-08 04:00] VITALS: BP 93/51
[2020-03-08 07:15] VITALS: BP 99/55
--- NOTE | 2020-03-08 08:59 | NUR ---
RESTING IN BED, NO DISTRESS NOTED, IV INFUSING WITH RAGS LABORER, LUNG SOUNDS DECREASED TO LEFT SIDE, CONT TO MONITOR PAIN
[2020-03-08 12:00] VITALS: BP 106/57
--- NOTE | 2020-03-08 13:19 | NUR ---
SHE TOOK A SHOWER TODAY.
[2020-03-08 16:00] VITALS: BP 99/47
[2020-03-08 20:00] VITALS: BP 130/65
[2020-03-09] VITALS: BP 146/62
--- NOTE | 2020-03-09 00:19 | MORECARE ---
CASE MANAGEMENT DISCHARGE SUMMARY PATIENT: WENDY RAMIREZ UNIT: [id number] ADM DATE: 03/06/20 AGE: 74 : 43 SEX: F ROOM/BED: D.2240 AUTHOR: TORREY USMMERS PHYSICIAN: REFERRING PHYSICIAN: SARIAH CHANDLER MD DATE OF SERVICE: 03/09/20 Discharge Plan Patient Name: WENDY RAMIREZ Facility: [facility]:[place] : 1945 Planned Disposition: Anticipated Discharge Date: Discharge Date: Expected LOS: Initial Reviewer: [email or web address] Initial Review Date: 03/06/2020 Generated: 03/09/20 1:19 am Patient Name: WENDY RAMIREZ Page 42680 at 0019 All edits/amendments must be made on the electronic document DICTATION DATE: 03/09/20 0019 SCENIC ARTIST: MICH 03/09/20 0019 RPT#: [id number] DC DATE: STATUS: ADM IN [facility] [address] [place] [address] END OF REPORT
--- NOTE | 2020-03-09 00:26 | MORECARE ---
CASE MANAGEMENT DISCHARGE SUMMARY PATIENT: WENDY RMAIREZ UNIT: [id number] ADM DATE: 03/06/20 AGE: 74 : 43 SEX: F ROOM/BED: D.2240 AUTHOR: TORREY SUMMERS PHYSICIAN: REFERRING PHYSICIAN: SARIAH CHANDLER MD DATE OF SERVICE: 03/09/20 Discharge Plan Patient Name: WENDY RAMIREZ Facility: [facility]:[place] : 1945 Planned Disposition: Anticipated Discharge Date: Discharge Date: Expected LOS: Initial Reviewer: [email or web address] Initial Review Date: 03/06/2020 Generated: 03/09/20 1:25 am DCPIA - Discharge Planning Initial Assessment Updated by [email or web address]: Allegra Escobar on 03/09/20 12:19 am * Is the patient Alert and Oriented? Yes * How many steps to enter\exit or inside your home? 4-5 * PCP RAMESH * Pharmacy [facility] * Preadmission Environment Home with Family * ADLs Partial Dependent * Partial ADLs (Assistance needed) Ambulation Bathing Dressing Eating Medication Management * Other Equipment HOME / PORTABLE 02, WALKER * List name and contact numbers for known caregivers / representatives who currently or will assist patient after discharge: JAK LOCKE - [facility] - [phone] * Verbal permission to speak to the caregivers and representatives has been obtained from the patient. Yes * Community resources currently utilized None * Additional services required to return to the preadmission environment? No * Can the patient safely return to the preadmission environment? Yes * Has this patient been hospitalized within the prior 30 days at any hospital? No Last DP export: 03/08/20 11:19 p Patient Name: WENDY RAMIREZ Page 15796 at 0026 All edits/amendments must be made on the electronic document DICTATION DATE: 03/09/2025 NANOTECHNOLOGIST: MICH 03/09/2025 RPT#: [id number] DC DATE: STATUS: ADM IN [facility] [address] [place] [address] END OF REPORT
--- NOTE | 2020-03-09 00:32 | MORECARE ---
CASE MANAGEMENT DISCHARGE SUMMARY PATIENT: WENDY RAMIREZ UNIT: [id number] ADM DATE: 03/06/20 AGE: 74 : 43 SEX: F ROOM/BED: D.2240 AUTHOR: MELINA,DOC PHYSICIAN: REFERRING PHYSICIAN: SARIAH GALICIA MD DATE OF SERVICE: 03/09/20 Discharge Plan Patient Name: WENDY RAMIREZ Facility: [facility]:[place] : 1945 Planned Disposition: Anticipated Discharge Date: Discharge Date: Expected LOS: Initial Reviewer: [email or web address] Initial Review Date: 03/06/2020 Generated: 03/09/20 1:32 am Comments DCP- Discharge Planning Updated by [email or web address]: Allegra Escobar on 03/08/20 11:[address] Patient Name: WENDY RAMIREZ Admission Status: Elective Accout number: [id number] Admission Date: 03-06-2020 : 1945 Admission Diagnosis: Attending: SARIAH GALICIA Current LOS: 3 Anticipated DC Date: Planned Disposition: Primary Insurance: [facility] MEDICARE SOLUTIONS Discharge Planning Comments: CM spoke with patient's daughter regarding discharge planning. CM educated patient on the CM role and verbal consent given by patient to complete assessment. Patient lives at home with family. Ramona is requesting that patient be placed in a facility at discharge. ESCOBAR completed for #1 [facility], #2 [facility] and no other preference (not a facility on [facility]) Dr. Galicia had mentioned hospice after placement. Ramona agrees with that. CM will continue to follow and assist as needed with discharge planning / needs. Candy Supervisor: Allegra Escobar DCPIA - Discharge Planning Initial Assessment Updated by [email or web address]: Allegra Escobar on 03/09/20 12:19 am * Is the patient Alert and Oriented? Yes * How many steps to enter\exit or inside your home? 4-5 * PCP RAMESH * Pharmacy [facility] * Preadmission Environment Home with Family * ADLs Partial Dependent * Partial ADLs (Assistance needed) Ambulation Bathing Dressing Eating Medication Management * Other Equipment HOME / PORTABLE 02, WALKER * List name and contact numbers for known caregivers / representatives who currently or will assist patient after discharge: RAMONA LOCKE - DAUGHTER - [phone] * Verbal permission to speak to the caregivers and representatives has been obtained from the patient. Yes * Community resources currently utilized None * Additional services required to return to the preadmission environment? No * Can the patient safely return to the preadmission environment? Yes * Has this patient been hospitalized within the prior 30 days at any hospital? No Coverage Notice Reviewer: [email or web address] Sherri Escobar Notice Issued Date-Time: 03/08/2020 15:35 Notice Type: Patient Choice Letter Notice Delivered To: Family Member Relationship to Patient: Daughter Hand Folder Name: RAMONA LOCKE Delivery Method: PHONE - Phone Tiffanie Days: Prior Verbal Notification: Yes Recipient Understood Notice: Yes Recipient Signature: Paul Rec Note Co-signed by Attending: Coverage Notice Comment: #1 [facility] #2 [facility] #[address] Last DP export: 03/08/20 11:26 p Patient Name: WENDY RAMIREZ Page 35003 at 0032 All edits/amendments must be made on the electronic document DICTATION DATE: 03/09/2031 UMBRELLA CUTTER: MICH 03/09/2031 RPT#: [id number] DC DATE: STATUS: ADM IN [facility] [address] [place] [address] END OF REPORT
[2020-03-09 04:00] VITALS: BP 94/64
[2020-03-09] MEDS ORDERED: IPRAT-ALBUT 0.5-3 ML UPD (09:01)
[2020-03-09] MEDS ORDERED: MS CONTIN15 MG PO (09:02)
[2020-03-09] MEDS ORDERED: NICODERM CQ1 EAC2 TRANSDERM (09:02)
[2020-03-09] MEDS ORDERED: AMITIZA24 MCG PO (09:03)
[2020-03-09] MEDS ORDERED: MORPHINE IMMEDI15 MG PO (09:03)
[2020-03-09] MEDS ORDERED: PROTONIX40 MG PO (09:03)
[2020-03-09 09:31] VITALS: BP 114/60
--- NOTE | 2020-03-09 10:22 | MORECARE ---
CASE MANAGEMENT DISCHARGE SUMMARY PATIENT: WENDY RAMIREZ UNIT: [id number] ADM DATE: 03/06/20 AGE: 74 : 43 SEX: F ROOM/BED: D.2240 AUTHOR: MELINA,DOC PHYSICIAN: REFERRING PHYSICIAN: SARIAH GALICIA MD DATE OF SERVICE: 03/09/20 Discharge Plan Patient Name: WENDY RAMIREZ Facility: [facility]:[place] : 1945 Planned Disposition: Anticipated Discharge Date: Discharge Date: Expected LOS: Initial Reviewer: [email or web address] Initial Review Date: 03/06/2020 Generated: 03/09/20 11:21 am Comments DCP- Discharge Planning Updated by [email or web address]: Allegra Escobar on 03/08/20 11:[address] Patient Name: WENDY RAMIREZ Admission Status: Elective Accout number: [id number] Admission Date: 03-06-2020 : 1945 Admission Diagnosis: Attending: SARIAH GALICIA Current LOS: 3 Anticipated DC Date: Planned Disposition: Primary Insurance: [facility] MEDICARE SOLUTIONS Discharge Planning Comments: CM spoke with patient's daughter regarding discharge planning. CM educated patient on the CM role and verbal consent given by patient to complete assessment. Patient lives at home with family. Ramona is requesting that patient be placed in a facility at discharge. ESCOBAR completed for #1 [facility], #2 [facility] and no other preference (not a facility on [facility]) Dr. Galicia had mentioned hospice after placement. Ramona agrees with that. CM will continue to follow and assist as needed with discharge planning / needs. Prosthetist: Allegra Escobar DCPIA - Discharge Planning Initial Assessment Updated by [email or web address]: Allegra Escobar on 03/09/20 12:19 am * Is the patient Alert and Oriented? Yes * How many steps to enter\exit or inside your home? 4-5 * PCP RAMESH * Pharmacy [facility] * Preadmission Environment Home with Family * ADLs Partial Dependent * Partial ADLs (Assistance needed) Ambulation Bathing Dressing Eating Medication Management * Other Equipment HOME / PORTABLE 02, WALKER * List name and contact numbers for known caregivers / representatives who currently or will assist patient after discharge: RAMONA LOCKE - DAUGHTER - [phone] * Verbal permission to speak to the caregivers and representatives has been obtained from the patient. Yes * Community resources currently utilized None * Additional services required to return to the preadmission environment? No * Can the patient safely return to the preadmission environment? Yes * Has this patient been hospitalized within the prior 30 days at any hospital? No External Providers External Provider: [facility] and [facility] Next Contact Date: Service Request Date: Service Type: Resolution: Reviewer: Comments: Coverage Notice Reviewer: [email or web address] - Allegra Escobar Notice Issued Date-Time: 03/08/2020 15:35 Notice Type: Patient Choice Letter Notice Delivered To: Family Member Relationship to Patient: Daughter Technical Services Analyst Name: RAMONA LOCKE Delivery Method: PHONE - Phone Tiffanie Days: Prior Verbal Notification: Yes Recipient Understood Notice: Yes Recipient Signature: Med Rec Note Co-signed by Attending: Coverage Notice Comment: #1 [facility] #2 [facility] #3 NOT ON [facility] Last DP export: 03/08/20 11:33 p Patient Name: WENDY RAMIREZ Page [id number] at 1022 All edits/amendments must be made on the electronic document DICTATION DATE: 03/09/20 1021 CEMENT CUTTER: MICH 03/09/20 1021 RPT#: [id number] DC DATE: STATUS: ADM IN [facility] [address] [place] [address] END OF REPORT
--- NOTE | 2020-03-09 10:29 | NUR ---
0700 BEDSIDE REPORT RECEIVED FROM OUTGOING NURSE INTRODUCED MYSELF TO PATIENT AND UPDATED WHITE BOARD
--- NOTE | 2020-03-09 10:30 | NUR ---
0800 OBTAINED A INCENTVE SPIROMETER FOR PATIENT INSTRUCTED ON IS USE PATIENT DEMEONSTRATED CORRECT USE ENCOURAGED IS USE EVERY HOUR WHILE AWAKE EDUCATED PATIENT ON PURPOSE OF IS PT VERBALIZED UNDERSTANDING
--- NOTE | 2020-03-09 10:34 | NUR ---
0900 D/C BRICK CHIMNEY SUPERVISOR MORPHINE
--- NOTE | 2020-03-09 10:36 | NUR ---
0910 MSCONTIN 15MG PO WAS GIVEN FOR PAIN 01/25 REASSESSMENT PAIN 11/25
--- NOTE | 2020-03-09 10:36 | MORECARE ---
CASE MANAGEMENT DISCHARGE SUMMARY PATIENT: WENDY RAMIREZ UNIT: [id number] ADM DATE: 03/06/20 AGE: 74 : 43 SEX: F ROOM/BED: D.2240 AUTHOR: MELINA,DOC PHYSICIAN: REFERRING PHYSICIAN: SARIAH GALICIA MD DATE OF SERVICE: 03/09/20 Discharge Plan Patient Name: WENDY RAMIREZ Facility: [facility]:[place] : 1945 Planned Disposition: Anticipated Discharge Date: Discharge Date: Expected LOS: Initial Reviewer: [email or web address] Initial Review Date: 03/06/2020 Generated: 03/09/20 11:36 am Comments DCP- Discharge Planning Updated by [email or web address]: Penny Pagan on 03/09/20 9:[address] Patient Name: WENDY RAMIREZ Admission Status: Elective Accout number: [id number] Admission Date: 03-06-2020 : 1945 Admission Diagnosis: Attending: SARIAH GALICIA Current LOS: 3 Anticipated DC Date: Planned Disposition: Primary Insurance: [facility] MEDICARE SOLUTIONS Discharge Planning Comments: SPOKE WITH THA AT [facility] [phone] AND REFERRAL FAXED TO HER. WAITING CALL BACK. Pediatrician Active Practice: Penny Pagan DCP- Discharge Planning Updated by [email or web address]: Allegra Escobar on 03/08/20 11:[address] Patient Name: WENDY RAMIREZ Admission Status: Elective Accout number: [id number] Admission Date: 03-06-2020 : 1945 Admission Diagnosis: Attending: SARIAH GALICIA Current LOS: 3 Anticipated DC Date: Planned Disposition: Primary Insurance: [facility] MEDICARE SOLUTIONS Discharge Planning Comments: CM spoke with patient's daughter regarding discharge planning. CM educated patient on the CM role and verbal consent given by patient to complete assessment. Patient lives at home with family. Ramona is requesting that patient be placed in a facility at discharge. ESCOBAR completed for #1 [facility], #2 [facility] and no other preference (not a facility on [facility]) Dr. Galicia had mentioned hospice after placement. Ramona agrees with that. CM will continue to follow and assist as needed with discharge planning / needs. Pediatrician Active Practice: Allegra Escobar DCPIA - Discharge Planning Initial Assessment Updated by [email or web address]: Allegra Escobar on 03/09/20 12:19 am * Is the patient Alert and Oriented? Yes * How many steps to enter\exit or inside your home? 4-5 * PCP RAMESH * Pharmacy [facility] * Preadmission Environment Home with Family * ADLs Partial Dependent * Partial ADLs (Assistance needed) Ambulation Bathing Dressing Eating Medication Management * Other Equipment HOME / PORTABLE 02, WALKER * List name and contact numbers for known caregivers / representatives who currently or will assist patient after discharge: RAMONA LOCKE - DAUGHTER - [phone] * Verbal permission to speak to the caregivers and representatives has been obtained from the patient. Yes * Community resources currently utilized None * Additional services required to return to the preadmission environment? No * Can the patient safely return to the preadmission environment? Yes * Has this patient been hospitalized within the prior 30 days at any hospital? No Coverage Notice Reviewer: [email or web address] - Allegra Escobar Notice Issued Date-Time: 03/08/2020 15:35 Notice Type: Patient Choice Letter Notice Delivered To: Family Member Relationship to Patient: Daughter Manager Medical Name: RAMONA LOCKE Delivery Method: PHONE - Phone Tiffanie Days: Prior Verbal Notification: Yes Recipient Understood Notice: Yes Recipient Signature: Med Rec Note Co-signed by Attending: Coverage Notice Comment: #1 [facility] #2 [facility] #3 NOT ON [address] Last DP export: 03/09/20 9:22 a Patient Name: WENDY RAMIREZ Page 03783 at 1036 All edits/amendments must be made on the electronic document DICTATION DATE: 03/09/20 1036 AUTOMATED WEAVER: MICH 03/09/20 1036 RPT#: [id number] DC DATE: STATUS: ADM IN [facility] [address] [place] [address] END OF REPORT
--- NOTE | 2020-03-09 11:07 | NUR ---
1000 PT DEMONSTRATED 500 ML WITH IS USE
[2020-03-09 14:02] VITALS: BP 132/81
--- NOTE | 2020-03-09 15:03 | MORECARE ---
CASE MANAGEMENT DISCHARGE SUMMARY PATIENT: WENDY RAMIREZ UNIT: [id number] ADM DATE: 03/06/20 AGE: 74 : 43 SEX: F ROOM/BED: D.2240 AUTHOR: MELINA,DOC PHYSICIAN: REFERRING PHYSICIAN: SARIAH GALICIA MD DATE OF SERVICE: 03/09/20 Discharge Plan Patient Name: WENDY RAMIREZ Facility: [facility]:[place] : 1945 Planned Disposition: Anticipated Discharge Date: Discharge Date: Expected LOS: Initial Reviewer: [id number] Initial Review Date: 03/06/2020 Generated: 03/09/20 4:02 pm Comments DCP- Discharge Planning Updated by [email or web address]: Penny Pagan on 03/09/20 1:[address] Patient Name: WENDY RAMIREZ Admission Status: Elective Accout number: [id number] Admission Date: 03-06-2020 : 1945 Admission Diagnosis: Attending: SARIAH GALICIA Current LOS: 3 Anticipated DC Date: Planned Disposition: Primary Insurance: [facility] MEDICARE SOLUTIONS Discharge Planning Comments: SPOKE WITH THA AT [facility] [phone] AND REFERRAL FAXED TO HER. WAITING CALL BACK. Director Of Employee Development: Penny Pagan Appended by Penny Pagan on 03/09/2020 14:55 CDT: SPOKE WITH THA AT [facility]. WAITING INSURANCE AUTH. ANTICIPATE MORNING DISCHARGE TO [facility]. DCP- Discharge Planning Updated by [id number]: Allegra Escobar on 03/08/20 11:[address] Patient Name: WENDY RAMIREZ Admission Status: Elective Accout number: [id number] Admission Date: 03-06-2020 : 1945 Admission Diagnosis: Attending: SARIAH GALICIA Current LOS: 3 Anticipated DC Date: Planned Disposition: Primary Insurance: [facility] MEDICARE SOLUTIONS Discharge Planning Comments: CM spoke with patient's daughter regarding discharge planning. CM educated patient on the CM role and verbal consent given by patient to complete assessment. Patient lives at home with family. Ramona is requesting that patient be placed in a facility at discharge. ESCOBAR completed for #1 [facility], #2 [facility] and no other preference (not a facility on [address] Dr. Galicia had mentioned hospice after placement. Ramona agrees with that. CM will continue to follow and assist as needed with discharge planning / needs. Director Of Employee Development: Allegra KATHLEEN - Discharge Planning Initial Assessment Updated by [id number]: Allegra Escobar on 03/09/20 12:19 am * Is the patient Alert and Oriented? Yes * How many steps to enter\exit or inside your home? 4-5 * PCP RAMESH * Pharmacy [facility] [place] * Preadmission Environment Home with Family * ADLs Partial Dependent * Partial ADLs (Assistance needed) Ambulation Bathing Dressing Eating Medication Management * Other Equipment HOME / PORTABLE 02, WALKER * List name and contact numbers for known caregivers / representatives who currently or will assist patient after discharge: RAMONA LOCKE - DAUGHTER - [phone] * Verbal permission to speak to the caregivers and representatives has been obtained from the patient. Yes * Community resources currently utilized None * Additional services required to return to the preadmission environment? No * Can the patient safely return to the preadmission environment? Yes * Has this patient been hospitalized within the prior 30 days at any hospital? No Coverage Notice Reviewer: [id number] - Allegra Escobar Notice Issued Date-Time: 03/08/2020 15:35 Notice Type: Patient Choice Letter Notice Delivered To: Family Member Relationship to Patient: Daughter Rv Body Mechanic Name: RAMONA LOCKE Delivery Method: PHONE - Phone Tiffanie Days: Prior Verbal Notification: Yes Recipient Understood Notice: Yes Recipient Signature: Med Rec Note Co-signed by Attending: Coverage Notice Comment: #1 [facility] #[address] [facility] #3 [address] ON [address] Last DP export: 03/09/20 9:36 a Patient Name: WENDY RAMIREZ Page [id number] at 1503 All edits/amendments must be made on the electronic document DICTATION DATE: 03/09/20 150 PHLEBOTOMIST: MICH 03/09/20 1502 RPT#: [id number] DC DATE: STATUS: ADM IN [facility] [address] [place] [address] END OF REPORT
--- NOTE | 2020-03-09 16:43 | NUR ---
REFUSED BATH ON TODAY. C/L IN REACH AT BEDSIDE.
[2020-03-09 18:40] VITALS: BP 128/80
--- NOTE | 2020-03-09 19:15 | NUR ---
1300 AD RODOLFO IN ROOM UP TO BEDSIDE COMMODE VOIDS WITHOUT DIFFICULTY
--- NOTE | 2020-03-09 19:16 | NUR ---
1600 WILL NOT GO TO LONG-TERM TODAY WAITING ON INSURANCE APPROVAL
[2020-03-09 20:58] VITALS: BP 141/53
[2020-03-10 00:53] VITALS: BP 118/66
[2020-03-10 04:00] VITALS: BP 118/61
--- NOTE | 2020-03-10 06:20 | NUR ---
I have reviewed this patient and I concur with the Shift Assessment completed by the Licensed Practical Nurse today this shift.
[2020-03-10 08:00] VITALS: BP 137/76
[2020-03-10 12:00] VITALS: BP 137/68
[2020-03-10 16:00] VITALS: BP 111/64
--- NOTE | 2020-03-10 17:46 | NUR ---
I have reviewed this patient and I concur with the Shift Assessment completed by the Licensed Practical Nurse today this shift.
[2020-03-10 20:30] VITALS: BP 131/68
[2020-03-11 00:14] VITALS: BP 121/61
[2020-03-11 06:10] VITALS: BP 125/63
--- NOTE | 2020-03-11 07:30 | NUR ---
PT IS RESTING IN BED WITH EYES CLOSED. RESPIRAITONS ARE EVEN AND UNLABORED. PT IS EASILY AROUSED WITH VERBAL STIMULATION AND IS AAO X 4 UPON AROUSAL. O2 VIA NC @ 2L. PT DENIES PRESENCE OF DIZZINESS/SOB/DYSPNEA AT THIS TIME. PT DENIES PRESENCE OF N/V AT THIS TIME. SCDS ON BLE. BED IS IN THE LOWEST POSITION. CALL LIGHT AND BEDSIDE TABLE ARE WITIHN REACH. SIDE RAILS X 2. PT DENIES FURTHER NEEDS. WILL CONT TO MONITOR.
[2020-03-11 08:00] VITALS: BP 108/65
[2020-03-11 12:00] VITALS: BP 123/69
--- NOTE | 2020-03-11 12:45 | NUR ---
ATTEMPT MADE TO CALL REPORT TO FACILITY. NO ANSWER. WILL ATTEMPT TO CALL REPORT AGAIN.
--- NOTE | 2020-03-11 13:05 | NUR ---
REPORT CALLED TO PABLO CALDWELL RN AT [facility]. ALL QUESTIONS ANSWERED. NOT FURTHER QUESTIONS.
--- NOTE | 2020-03-11 13:51 | NUR ---
ALL DISCHARGE INSTRUCTIONS COVERED WITH PT. ALL DISCHARGE PAPERS SIGNED. (2) PRINTED RX GIVEN TO PT. PT DENIES FURTHER QUESTIONS/CONCERNS/NEEDS AT THIS TIME. PT DOES NOT HAVE IV ACCESS. ALL SIGNED DC PAPERS PLACED IN PT CHART. WILL WAIT FOR PT TRANSPORTATION TO ARRIVE. PT DENIES FURTHER QUESTIONS/CONCERNS/NEEDS AT THIS TIME.
--- NOTE | 2020-03-11 15:51 | NUR ---
PT TRANSPORTED FROM FLOOR VIA WHEELCHAIR BY [facility] STAFF. PT DENIES FURTHER QUESTIONS/CONCERNS/NEEDS AT THIS TIME. PT STATES THAT SHE HAS ALL PERSONAL BELONGINGS. PT THANKS THIS NURSE FOR CARE GIVEN DURING THIS SHIFT.
--- NOTE | 2020-03-12 09:32 | MORECARE ---
CASE MANAGEMENT DISCHARGE SUMMARY PATIENT: WENDY RAMIREZ UNIT: [id number] ADM DATE: 03/06/20 AGE: 74 : 43 SEX: F ROOM/BED: D.2240 AUTHOR: MELINA,DOC PHYSICIAN: REFERRING PHYSICIAN: SARIAH GALICIA MD DATE OF SERVICE: 03/12/20 Discharge Plan Patient Name: WENDY RAMIREZ Facility: [facility]:[place] : 1945 Planned Disposition: Anticipated Discharge Date: Discharge Date: 03/11/2020 Expected LOS: Initial Reviewer: [id number] Initial Review Date: 03/06/2020 Generated: 03/12/20 10:31 am DCP- Discharge Planning Updated by [email or web address]: Penny Pagan on 03/09/20 1:[address] Patient Name: WENDY RAMIREZ Admission Status: Elective Accout number: [id number] Admission Date: 03-06-2020 : 1945 Admission Diagnosis: Attending: SARIAH GALICIA Current LOS: 3 Anticipated DC Date: Planned Disposition: Primary Insurance: [facility] MEDICARE SOLUTIONS Discharge Planning Comments: SPOKE WITH THA AT [facility] [phone] AND REFERRAL FAXED TO HER. WAITING CALL BACK. Media Relations Director: Penny Pagan Appended by Penny Pagan on 03/09/2020 14:55 CDT: SPOKE WITH THA AT [facility]. WAITING INSURANCE AUTH. ANTICIPATE MORNING DISCHARGE TO LONGTERM CARE. DCP- Discharge Planning Updated by [id number]: Allegra Escobar on 03/08/20 11:[address] Patient Name: WENDY RAMIREZ Admission Status: Elective Accout number: [id number] Admission Date: 03-06-2020 : 1945 Admission Diagnosis: Attending: SARIAH GALICIA Current LOS: 3 Anticipated DC Date: Planned Disposition: Primary Insurance: [facility] MEDICARE SOLUTIONS Discharge Planning Comments: CM spoke with patient's daughter regarding discharge planning. CM educated patient on the CM role and verbal consent given by patient to complete assessment. Patient lives at home with family. Ramona is requesting that patient be placed in a facility at discharge. ESCOBAR completed for #1 [facility], #2 [facility] and no other preference (not a facility on [address] Dr. Galicia had mentioned hospice after placement. Ramona agrees with that. CM will continue to follow and assist as needed with discharge planning / needs. Media Relations Director: Allegra KATHLEEN - Discharge Planning Initial Assessment Updated by [id number]: Allegra Escobar on 03/09/20 12:19 am * Is the patient Alert and Oriented? Yes * How many steps to enter\exit or inside your home? 4-5 * PCP RAMESH * Pharmacy [facility] * Preadmission Environment Home with Family * ADLs Partial Dependent * Partial ADLs (Assistance needed) Ambulation Bathing Dressing Eating Medication Management * Other Equipment HOME / PORTABLE 02, WALKER * List name and contact numbers for known caregivers / representatives who currently or will assist patient after discharge: RAMONA LOCKE - DAUGHTER - [phone] * Verbal permission to speak to the caregivers and representatives has been obtained from the patient. Yes * Community resources currently utilized None * Additional services required to return to the preadmission environment? No * Can the patient safely return to the preadmission environment? Yes * Has this patient been hospitalized within the prior 30 days at any hospital? No Coverage Notice Reviewer: [id number] Sherri Escobar Notice Issued Date-Time: 03/08/2020 15:35 Notice Type: Patient Choice Letter Notice Delivered To: Family Member Relationship to Patient: Daughter Desk Editor Name: RAMONA LOCKE Delivery Method: PHONE - Phone Tfifanie Days: Prior Verbal Notification: Yes Recipient Understood Notice: Yes Recipient Signature: Med Rec Note Co-signed by Attending: Coverage Notice Comment: #1 [facility] #2 [facility] #3 NOT ON [facility] Reviewer: [id number] - Allegra Escobar Notice Issued Date-Time: 03/07/2020 11:15 Notice Type: Medicare Outpatient Observation Notice Notice Delivered To: Patient Relationship to Patient: Self Desk Editor Name: Delivery Method: HAND - Hand Delivered Tiffanie Days: Prior Verbal Notification: Recipient Understood Notice: Yes Recipient Signature: Yes Med Rec Note Co-signed by Attending: Coverage Notice Comment: Reviewer: [email or web address] Sherri Pagan Notice Issued Date-Time: 03/11/2020 12:34 Notice Type: IM Discharge Notice Notice Delivered To: Patient Relationship to Patient: Desk Editor Name: Delivery Method: HAND - Hand Delivered Tiffanie Days: Prior Verbal Notification: Recipient Understood Notice: Yes Recipient Signature: Yes Med Rec Note Co-signed by Attending: Coverage Notice Comment: Last DP export: 03/09/20 2:03 p Patient Name: WENDY RAMIREZ Page 76919 at 0932 All edits/amendments must be made on the electronic document DICTATION DATE: 03/12/20930 FRONT MAN: MICH 03/12/20930 RPT#: [id number] DC DATE:03/11/20 STATUS: DIS IN [facility] [address] [place] [address] END OF REPORT
== END 2020-03-11 15:52 ==
LOC: D.ER 09:41 → D.MS 12:36 → OBSVTIME 13:41 → D.MS 03-11 15:52
PROVIDERS: Family Medicine; ADMIT Family Medicine; ATTEND Family Medicine
DX: G89.3 Neoplasm related pain (acute) (chronic) (principal); C34.90 Malignant neoplasm of unspecified part of unspecified bronchus or lung; G30.1 Alzheimer's disease with late onset; F02.81 Dementia in other diseases classified elsewhere, unspecified severity, with behavioral disturbance; K59.03 Drug induced constipation; E78.5 Hyperlipidemia, unspecified; J44.9 Chronic obstructive pulmonary disease, unspecified; E03.8 Other specified hypothyroidism; E06.3 Autoimmune thyroiditis; K21.9 Gastro-esophageal reflux disease without esophagitis; G43.109 Migraine with aura, not intractable, without status migrainosus; Z66 Do not resuscitate; R07.9 Chest pain, unspecified; K59.00 Constipation, unspecified; F41.8 Other specified anxiety disorders; E03.9 Hypothyroidism, unspecified; F31.9 Bipolar disorder, unspecified